=== PATIENT | male | born 1970 | race Caucasian/White ===

== ENCOUNTER 2016-08-15 00:42 | Emergency (ER) | payer MEDICAID ==
[2015-06-22 14:03] VITALS: BMI 29.2
[~2016-08-15 00:42] MED LIST: ATIVAN0.5 MG PO; ATIVAN1 MG; CELEXA20 MG PO; DILANTIN100 MG PO; HYDROCODON-ACE1 EAC7 PO; HYDROCODONE-APA1 TAB PO; LITHOBID 300 M300 MG PO; TORADOL10 MG PO; ULTRAM50 MG PO
[2016-08-15 02:11] LABS: BASOPHILS 0.4 % (0.0-2.0); EOSINOPHILS 4.7 % (0-7); HEMATOCRIT 41.8 % (42.0-54.0); HEMOGLOBIN 14.7 g/dL (13.5-17.5); IMMATURE GRANULOCYTES 0.2 % (0-5); LYMPHOCYTES 34.8 % (15-50); MCH 32.5 pg (26.0-34.0); MCHC 35.2 g/dL (31.0-37.0); MCV 92.5 fL (80.0-100.0); MEAN PLATELET VOLUME 9.9 fL (7.4-10.4); MONOCYTES 12.6 % (2-11); NEUTROPHILS 47.3 % (40-80); PLATELET COUNT 181 10x3/uL (130-400); RBC 4.52 10x6/uL (4.20-6.10); RDW 12.2 % (11.5-14.5); WBC 5.5 10x3/uL (4.8-10.8)
[2016-08-15 02:24] LABS: ALBUMIN 3.4 g/dL (3.4-5.0); ALKALINE PHOSPHATASE 82 U/L (46-116); ALT (SGPT) 66 U/L (10-68); BILIRUBIN - TOTAL 0.21 mg/dL (0.2-1.3); CALC OSMOLALITY 280 mosm/kg (275-300); CARBON DIOXIDE 26.8 mmol/L (21.0-32.0); CHLORIDE - SERUM 104 mmol/L (98-107); GLUCOSE 108 mg/dL (74-106); POTASSIUM - SERUM 4.4 mmol/L (3.5-5.1); PROTEIN - SERUM 6.8 g/dL (6.4-8.2); SODIUM 139 mmol/L (136-145); UREA NITROGEN 17 mg/dL (7-18); eGFR NON AFRICAN AMERICAN 86 mL/min (90-120)
[2016-08-15 02:34] LABS: CHOL - HDL RATIO 5.8 ratio (2.3-4.9); CHOLESTEROL, TOTAL 180 mg/dL (0-200); CKMB 1.2 U/L (0.0-3.6); CREATINE KINASE 71 UL (21-232); HDL CHOLESTEROL 31 mg/dL (32-96); LDL CHOLESTEROL 79 mg/dL (0-100); LDL-HDL RATIO 2.5 ratio (1.5-3.5); TRIGLYCERIDE 350 mg/dL (30-200)
[2016-08-15 02:35] LABS: TROPONIN-I < 0.017 ng/mL (0.000-0.060)
== END 2016-08-15 02:50 | disposition home or self-care (01) ==
LOC: D.ER 00:42
PROVIDERS: Family Medicine
DX: R07.89 Other chest pain (principal); E11.9 Type 2 diabetes mellitus without complications; R00.1 Bradycardia, unspecified; I44.0 Atrioventricular block, first degree

== ENCOUNTER 2016-10-14 13:57 | Emergency (ER) | payer MEDICAID ==
[2015-06-22 14:03] VITALS: BMI 29.2
[2016-10-14 15:49] LABS: BASOPHILS 0.2 % (0-2); EOSINOPHILS 1.5 % (0-7); HEMATOCRIT 43.8 % (42.0-54.0); HEMOGLOBIN 15.4 g/dL (13.5-17.5); IMMATURE GRANULOCYTES 0.2 % (0-5); MCH 32.2 pg (26.0-34.0); MCHC 35.2 g/dL (31.0-37.0); MCV 91.6 fL (80.0-100.0); MEAN PLATELET VOLUME 10.2 fL (7.4-10.4); MONOCYTES 9.5 % (2-11); NEUTROPHILS 71.6 % (40-80); RBC 4.78 10x6/uL (4.20-6.10); RDW 12.4 % (11.5-14.5); WBC 9.2 10x3/uL (4.8-10.8)
[2016-10-14 16:02] LABS: PLATELET COUNT 229 10x3/uL (130-400)
[2016-10-14 16:30] LABS: INR 1.03 (0.85-1.17); PROTIME 13.4 SECONDS (11.6-15.0)
== END 2016-10-14 18:23 | disposition home or self-care (01) ==
LOC: D.ER 13:57
PROVIDERS: Emergency Medicine; Nurse Practitioner Family
DX: S40.011A Contusion of right shoulder, initial encounter (principal); S20.229A Contusion of unspecified back wall of thorax, initial encounter; Y00.XXXA Assault by blunt object, initial encounter; S01.01XA Laceration without foreign body of scalp, initial encounter; S06.9X9A Unspecified intracranial injury with loss of consciousness of unspecified duration, initial encounter; T42.0X5A Adverse effect of hydantoin derivatives, initial encounter; E11.9 Type 2 diabetes mellitus without complications

== ENCOUNTER 2016-10-24 09:50 | Emergency (ER) | payer MEDICAID ==
[2015-06-22 14:03] VITALS: BMI 29.2
== END 2016-10-24 11:00 | disposition home or self-care (01) ==
LOC: D.ER 09:50
DX: S01.01XD Laceration without foreign body of scalp, subsequent encounter (principal); X58.XXXD Exposure to other specified factors, subsequent encounter; Y92.89 Other specified places as the place of occurrence of the external cause; Z48.02 Encounter for removal of sutures; M25.511 Pain in right shoulder

== ENCOUNTER 2016-11-24 23:55 | Emergency (ER) | payer MEDICAID ==
[2015-06-22 14:03] VITALS: BMI 29.2
[2016-11-25 00:58] LABS: BASOPHILS 0.3 % (0-2); EOSINOPHILS 4.3 % (0-7); HEMATOCRIT 41.1 % (42.0-54.0); HEMOGLOBIN 14.2 g/dL (13.5-17.5); IMMATURE GRANULOCYTES 0.2 % (0-5); LYMPHOCYTES 34.9 % (15-50); MCHC 34.5 g/dL (31.0-37.0); MCV 92.6 fL (80.0-100.0); MONOCYTES 13.8 % (2-11); NEUTROPHILS 46.5 % (40-80); PLATELET COUNT 228 10x3/uL (130-400); RBC 4.44 10x6/uL (4.20-6.10); RDW 12.2 % (11.5-14.5); WBC 6.1 10x3/uL (4.8-10.8)
[2016-11-25 01:15] LABS: ALBUMIN 3.1 g/dL (3.4-5.0); ALKALINE PHOSPHATASE 79 U/L (46-116); ALT (SGPT) 73 U/L (10-68); BILIRUBIN - TOTAL 0.42 mg/dL (0.2-1.3); CALC OSMOLALITY 281 mosm/kg (275-300); CALCIUM 8.5 mg/dL (8.5-10.1); CARBON DIOXIDE 24.7 mmol/L (21.0-32.0); CHLORIDE - SERUM 106 mmol/L (98-107); CREATININE - SERUM 0.9 mg/dL (0.6-1.3); GLUCOSE 101 mg/dL (74-106); PHENYTOIN (DILANTIN) 0.4 ug/mL (10.0-20.0); POTASSIUM - SERUM 4.3 mmol/L (3.5-5.1); PROTEIN - SERUM 6.7 g/dL (6.4-8.2); SODIUM 139 mmol/L (136-145); UREA NITROGEN 25 mg/dL (7-18); eGFR NON AFRICAN AMERICAN > 90 mL/min (90-120)
== END 2016-11-25 04:39 | disposition home or self-care (01) ==
LOC: D.ER 23:55
PROVIDERS: Emergency Medicine
DX: G40.909 Epilepsy, unspecified, not intractable, without status epilepticus (principal); F17.200 Nicotine dependence, unspecified, uncomplicated; I44.0 Atrioventricular block, first degree

== ENCOUNTER 2016-12-18 13:03 | Observation (INO) | payer MEDICAID ==
[~2016-12-18] VITALS: Ht 162.6 cm; Wt 87.3 kg
--- NOTE | ~2016-12-18 | HEMODYNAMI ---
PATIENT:ELIZABETH MCKEON MEDICAL RECORD: [id number] : 70 LOCATION:[facility] D.2111 ADMISSION DATE: 12/18/16 Generatedon:12/19/201611:20 Patient name: ELIZABETH MCKEON Patient #: [id number] SSN: D OB: 1970 Date of study: 12/19/2016 Page: Of Hemodynamic Procedure Report Patient Data Patient Demographics Procedure consent was obtained First Name: ELIZABETH Gender: Male Last Name: MIKE : 1970 Patient #: [id number] Age: 46 year(s) Race: Unknown Additional ID: [id number] Contact details [address]: [address] [place] [address] A State: [place] City: [place] Zip code: [address] Past Medical History Allergies Allergen Reaction Date Comments Reported Other allergy 12/19/2016 Codeine, Morphine, Tylenol, Sulfa Admission Admission Data Admission Date: 12/18/2016 Admission Time: 17:29 [facility] Lab Result Date: 12/19/2016 Lab Result Time: 0:00 Biochemistry Name Units Result Min Max BUN mg/dl 18 --(---*)-- 7 18 Creatinine mg/dl 1 --(--*-)-- 0.6 1.3 CBC Name Units Result Min Max Hemoglobin g/dl 14.1 --(*---)-- 13.5 17.5 Procedure Procedure Types Cath Procedure Diagnostic Procedure C [facility] w/Coronaries Miscellaneous Procedures Moderate Sedation up to 15 minutes Peripheral Cath Diagnostic Procedure 4-Vessel Procedure Description Procedure Date Procedure Date: 12/19/2016 Procedure Start Time: 11:04 Procedure End Time: 11:15 Procedure Staff Name Function Malik Diehl MD Performing Physician Tyesha Gaona RT Scrub Sabino Hendrix RN Nurse Ginger Champagne RT Monitor Procedure Data Cath Procedure Fluoroscopy Diagnostic fluoroscopy Total fluoroscopy Time: 2.5 time: 2.5 min min Diagnostic fluoroscopy Total fluoroscopy dose: 412 dose: 412 mGy mGy Contrast Material Contrast Material Type Amount (ml) Isovue 300 86 Entry Location Entry Primary Successful Side Size Upsize Upsize Entry Closure Succes sful Closure Location (Fr) 1 (Fr) 2 (Fr) Remarks Device Remarks Femoral Right 5 Fr Exoseal artery Estimated blood loss: 10 ml Diagnostic catheters Device Type Used For End Catheter Placement Cordis 5Fr JL 4.0 Procedure Catheter (MP) Cordis 5Fr 3DRC Catheter Procedure (MP) Cordis 5Fr Pigtail LV Angiography Catheter (MP) Procedure Complications No complications Procedure Medications Medication Administration Route Dosage Oxygen NC 2 l/min Lidocaine 2% added to field 20 Heparin Flush Bag added to field 2 bags (1000units/500ml NS) 0.9% NaCl I.V. 100 ml/hr Versed I.V. 1 mg Fentanyl I.V. 50 mcg Versed I.V. 1 mg Fentanyl I.V. 50 mcg Solumedrol I.V. 125 mg Hemodynamics Rest HGB: 14.1 (g/dl) Heart Rate: 73 (bpm) Pressure Samples Time Site Value (mmHg) Purpose Heart Use Rate(bpm) 11:11 LV 104/12,28 Snapshot 50 11:11 AO 94/61(77) Pullback 50 11:11 LV 100/14,31 Pullback 50 Gradients Valve Time Site 1 Site 2 Mean SEP/DFP Peak To Heart Use (mmHg) (sec/min) Peak Rate (mmHg) (bpm) Aortic 11:11 LV AO 6 11 6 50 100/14,31 94/61(77) Calculations Valve P-P Mean Valve Index Valve Source Name Gradient Area Flow (cm2) Aortic 6 6 6 6 Snapshots Pre Cath Intra NCS Post Cath Vital Signs Time Heart Resp SPO2 NIBP Rhythm Pain Sedation Rate (ipm) (%) (mmHg) Status Level (bpm) 10:55:09 54 20 99 105/64(81) NSR 0 (11) 10(A) , No pain 10:59:15 53 13 97 100/64(74) NSR 0 (11) 10(A) , No pain 11:03:21 48 10 96 107/60(82) NSR 0 (11) 10(A) , No pain 11:07:28 51 12 96 101/63(81) NSR 0 (11) 10(A) , No pain 11:11:32 48 10 97 99/68(76) NSR 0 (11) 10(A) , No pain 11:15:36 47 11 97 95/60(77) NSR 0 (11) 10(A) , No pain Medications Time Medication Route Dose Verified Delivered Reason Notes E ffectiveness by by 10:54:46 Oxygen NC 2 Malik Buffie used for l/min [facility]. Aba Hendrix account solutions analyst 10:54:55 Lidocaine 2% added 20ml Malik Malik for local to vial [facility] anesthetic field MD MACDONALD 10:55:01 Heparin Flush added 2 Malik Malik used for Bag to bags [facility] procedure (1000units/500ml field MD MACDONALD NS) 10:55:10 0.9% NaCl I.V. 100 Malik Buffie Per ml/hr [facility]. Aba Hendrix RN physician 10:58:42 Versed I.V. 1 mg Malik Hamiltonie for [facility] Aba Hendrix RN sedation 10:58:47 Fentanyl I.V. 50 Malik Joyie for mcg FazalCammy Hendrix RN sedation 11:03:17 Versed I.V. 1 mg Malik Hamiltonie for FazalCammy Hendrix RN sedation 11:03:20 Fentanyl I.V. 50 Malik Hamiltonie for mcg FazalCammy Hendrix RN sedation 11:14:51 Solumedrol I.V. 125 Malik Hamiltonie Per for mg [facility] Aba Hendrix RN physician pleuricharisse MACDONALD type chest pain Procedure Log Time Note 10:43:53 Sabino Hendrix RN sent for patient. Start room use. 10:43:54 Time tracking: Regular hours 10:43:59 Plan of Care:Hemodynamics will remain stable., Cardiac rhythm will remain stable., Comfort level will be maintained., Respiratory function will remain adequate., Patient/ family verbilizes understanding of procedure., Procedure tolerated without complication., Recovers from procedure without complications.. 10:44:58 Patient received from PCU to CCL 2 Alert and oriented. Tansferred to table in Supine position. 10:44:59 Warm blankets applied, and freedom hugger turned on for patient comfort. 10:45:00 Correct patient and procedure confirmed by team. 10:45:01 Signed procedure consent form obtained from patient. 10:45:01 ECG and BP/O2 sat monitors applied to patient. 10:45:02 Full Disclosure recording started 10:54:07 Vital chart was started 10:54:15 Baseline sample Acquired. 10:54:21 Rhythm: sinus rhythm 10:54:45 H&P Date Dictated: 12/18/2016 Within 30 days and on chart.. 10:54:46 Oxygen 2 l/min NC was administered by Sabino Hendrix RN; used for procedure; 10:54:47 Pre-procedure instructions explained to patient. 10:54:52 Family unavailable. 10:54:55 Lidocaine 2% 20ml vial added to field was administered by Malik Diehl MD; for local anesthetic; 10:54:56 Patient NPO since Midnight. 10:55:01 Heparin Flush Bag (1000units/500ml NS) 2 bags added to field was administered by Malik Diehl MD; used for procedure; 10:55:10 0.9% NaCl 100 ml/hr I.V. was administered by Sabino Hendrix RN; Per physician; 10:55:32 Patient allergic to Other allergyCodeine, Morphine, Tylenol, Sulfa 10:55:38 Is the patient allergic to Iodine/contrast media? No. 10:55:51 Is patient on blood thinner?No 10:56:01 Patient diabetic? Yes. 10:56:04 If diabetic: On Metformin? No 10:56:08 Snore? Yes 10:56:10 Sleep apnea? No 10:56:27 Airway obstruction? No Asthma 10:56:32 Dentures? No ? 10:56:41 Patient pain scale 10/10 ?. 10:57:00 IV patent on arrival in left forearm with 0.9% NaCl at [facility]. 10:57:55 Lab Result : BUN 18 mg/dl 10:57:55 Lab Result : Creatinine 1 mg/dl 10:57:55 Lab Result : Hemoglobin 14.1 g/dl 10:57:59 Lab results completed and on chart. 10:58:03 Right groin area was prepped with chlora-prep and draped in sterile fashion 10:58:05 Alarms reviewed by R. N. 10:58:05 Sharps counted by scrub and verified by RCammyN. 10:58:06 Physician paged 10:58:07 Physician arrived 10:58:08 --------ALL STOP TIME OUT------ 10:58:09 Final Timeout: patient, procedure, and site verified with staff and physician. All members of the team are in agreement. 10:58:11 Right groin site verified by team. 10:58:15 Sedation plan: IV Moderate Sedation Versed, Fentanyl 10:58:42 Versed 1 mg I.V. was administered by Sabino Hnedrix RN; for sedation; 10:58:47 Fentanyl 50 mcg I.V. was administered by Sabino Hendrix RN; for sedation; 11:03:17 Versed 1 mg I.V. was administered by Sabino Hendrix RN; for sedation; 11:03:20 Fentanyl 50 mcg I.V. was administered by Sabino Hendrix RN; for sedation; 11:03:34 Zero performed for pressure channel P1 11:03:52 Use device set Femoral Dx 11:03:54 Acist Syringe opened to sterile field. 11:03:54 Bag Decanter opened to sterile field. 11:03:55 Medline Cath Pack opened to sterile field. 11:03:55 Terumo 5Fr [place] Sheath opened to sterile field. 11:03:55 St Taz 260cm J .035 wire opened to sterile field. 11:03:56 Acist Hand Control opened to sterile field. 11:03:57 Acist Manifold opened to sterile field. 11:03:57 Diagnostic Infinity 5Fr Multipack catheter opened to sterile field. 11:03:58 Tegaderm 4 x 4 opened to sterile field. 11:04:00 Procedure started. 11:04:10 Local anesthetic to right femoral artery with Lidocaine 2% by Malik Diehl MD.INITIAL ACCESS ONLY 11:04:21 A 5 Fr sheath was inserted into the Right Femoral artery 11:05:22 ? wire advanced. 11:05:35 A Cordis 5Fr JL 4.0 Catheter (MP) was advanced over the wire and used for Procedure. 11:06:18 LCA angiography performed. 11:06:34 Catheter removed. 11:07:13 A Cordis 5Fr 3DRC Catheter (MP) was advanced over the wire and used for Procedure. 11:07:52 RCA angiography performed. 11:08:45 Right carotid angiography performed. 11:10:10 Left carotid angiography performed. 11:11:06 Catheter removed. 11:11:15 A Cordis 5Fr Pigtail Catheter (MP) was advanced over the wire and used for LV Angiography. 11:11:36 LV gram done using CLEMENS 11:11:58 EF : 55 % 11:12:04 Catheter removed. 11:12:12 Cordis 5Fr Exoseal opened to sterile field. 11:12:28 Sheath removed intact; hemostasis achieved with Exoseal to the Right Femoral artery. 11:12:37 Procedure ended.(Physican Out) 11:12:47 Fluoroscopy time 02.50 minutes. 11:12:54 Fluoroscopy dose: 412 mGy 11:12:54 Flurop Dose total: 412 11:13:18 Contrast amount:Isovue 300 86ml. 11:13:20 Sharps counted by scrub and verified by R.N. 11:13:42 Insertion/operative site no bleeding no hematoma. 11:13:44 Post Procedure Pulses reassessed and unchanged 11:13:48 Post-procedure physical assessment completed. ASA score P 2 - A patient with mild systemic disease as per Malik Diehl MD. 11:13:53 Post procedure rhythm: unchanged. 11:13:55 Estimated blood loss: 10 ml 11:14:05 Post procedure instruction explained to patient.Patient verbalizes understanding. 11:14:24 Procedure type changed to Cath procedure, Diagnostic procedure, LHC, LHC w/Coronaries, Miscellaneous Procedures, Moderate Sedation up to 15 minutes, Peripheral Cath Diagnostic Procedure, 4-Vessel 11:14:37 Procedure and supply charges have been captured, reviewed, submitted and are correct. 11:14:51 Solumedrol 125 mg I.V. was administered by Sabino Hendrix RN; Per physician; for pleuritic type chest pain 11:14:56 Procedure Complication : No complications 11:15:01 Vital chart was stopped 11:15:06 See physician's report for complete and final results. 11:15:09 Report given to Med II. 11:15:13 Patient transfered to [facility] II with Bed. 11:15:15 Procedure ended. 11:15:15 Full Disclosure recording stopped 11:15:19 End room use (Document Last) Device Usage Item Name Manufacture Quantity Catalog Hospital Part Current Minimal Lo t# / Number Charge Number Stock Stock Serial# Code Acist Acist 1 95187 234822 710770 903943 20 Syringe Medical [employer] Bag Microtek 1 2002S 269325 53658 664721 5 Dec[employer]un[employer] Inc[employer] Medline Cardinal 1 [id number] 797956 61172 650029 5 Cath Pack Health Terumo 5Fr Terumo 1 DAT537 234572 777442 271972 [address] Taz 1 909888 227335 777178 900147 30 260cm J .035 wire Acist Hand Acist 1 28938 197576 819674 940858 5 Control Medical Systems Inc Acist Acist 1 71017 684788 761866 970249 5 Manifold Medical Systems Inc Diagnostic Cardinal 1 [id number] 832039 78143 331505 30 Infinity Health 5Fr Multipack catheter Tegaderm 4 3M 1 1626W 511169 932507 534996 5 x 4 Cordis 5Fr Cardinal 1 345178 5 JL 4.0 Health Catheter (MP) Cordis 5Fr Cardinal 1 478844 5 3DRC Health Catheter (MP) Cordis 5Fr Cardinal 1 085498 5 Pigtail Health Catheter (MP) Cordis 5Fr Cardinal 1 EX500 982731 565500 314229 10 [facility] Enablon Signature Audit [place] Stage Time Signature Unsigned Intra-Procedure 12/19/2016 Ginger Champagne 11:20:04 AM RT(R) Signatures Monitor : Ginger Champagne Signature : RT Date : Time : [place] [address] [place] [address]
[2016-12-18 13:49] LABS: BASOPHILS 0.3 % (0-2); EOSINOPHILS 4.4 % (0-7); HEMATOCRIT 40.1 % (42.0-54.0); HEMOGLOBIN 14.1 g/dL (13.5-17.5); IMMATURE GRANULOCYTES 0.2 % (0-5); LYMPHOCYTES 35.4 % (15-50); MCH 32.1 pg (26.0-34.0); MCHC 35.2 g/dL (31.0-37.0); MCV 91.3 fL (80.0-100.0); MEAN PLATELET VOLUME 10.1 fL (7.4-10.4); MONOCYTES 11.3 % (2-11); NEUTROPHILS 48.4 % (40-80); PLATELET COUNT 213 10x3/uL (130-400); RBC 4.39 10x6/uL (4.20-6.10); RDW 12.1 % (11.5-14.5); WBC 6.1 10x3/uL (4.8-10.8)
[2016-12-18 14:15] LABS: ALBUMIN 3.5 g/dL (3.4-5.0); ALKALINE PHOSPHATASE 82 U/L (46-116); ALT (SGPT) 56 U/L (10-68); BILIRUBIN - TOTAL 0.55 mg/dL (0.2-1.3); CALC OSMOLALITY 278 mosm/kg (275-300); CALCIUM 8.6 mg/dL (8.5-10.1); CARBON DIOXIDE 26.8 mmol/L (21.0-32.0); CHLORIDE - SERUM 106 mmol/L (98-107); GLUCOSE 112 mg/dL (74-106); POTASSIUM - SERUM 3.7 mmol/L (3.5-5.1); SODIUM 138 mmol/L (136-145); UREA NITROGEN 18 mg/dL (7-18); eGFR NON AFRICAN AMERICAN 85 mL/min (90-120)
[2016-12-18 14:26] LABS: CHOL - HDL RATIO 3.5 ratio (2.3-4.9); CHOLESTEROL, TOTAL 175 mg/dL (0-200); CKMB 1.4 U/L (0.0-3.6); CREATINE KINASE 122 UL (21-232); HDL CHOLESTEROL 50 mg/dL (32-96); LDL CHOLESTEROL 110 mg/dL (0-100); LDL-HDL RATIO 2.2 ratio (1.5-3.5); TRIGLYCERIDE 79 mg/dL (30-200)
[2016-12-18 14:27] LABS: TROPONIN-I < 0.017 ng/mL (0.000-0.060)
[2016-12-18 15:32] LABS: APPEARANCE HAZY (CLEAR); COLOR DK YELLOW (YELLOW); SPECIFIC GRAVITY 1.025 (1.005-1.020)
[2016-12-18 15:35] LABS: BACTERIA FEW /hpf (NONE SEEN); BILIRUBIN NEGATIVE (NEGATIVE); EPITHELIAL CELLS OCC /hpf (0-5); GLUCOSE NEGATIVE (NEGATIVE); KETONE NEGATIVE (NEGATIVE); LEUKOCYTE ESTERASE TRACE (NEGATIVE); MUCUS >1+ /lpf (NONE SEEN); NITRITE NEGATIVE (NEGATIVE); PROTEIN NEGATIVE (NEGATIVE); RED CELLS - URINE OCC /hpf (0-5); UDS - AMPHET POSITIVE QUAL (NEGATIVE); UDS - BARB NEGATIVE QUAL (NEGATIVE); UDS - BENZO NEGATIVE QUAL (NEGATIVE); UDS - COCAINE NEGATIVE QUAL (NEGATIVE); UDS - METH NEGATIVE QUAL (NEGATIVE); UDS - OPIATE NEGATIVE QUAL (NEGATIVE); UDS - PCP NEGATIVE QUAL (NEGATIVE); UDS - THC POSITIVE QUAL (NEGATIVE); UROBILINOGEN NORMAL (NORMAL)
[2016-12-18] MEDS ORDERED: ZOLOFT100 MG PO (18:39)
[2016-12-18] MEDS ORDERED: PROAIR HFA8.5 GM INH (18:40)
--- NOTE | 2016-12-18 18:45 | NUR ---
RECIEVED FROM ER. PT IS CONFUSED AND DOEST REMEMBER WHEN OR WHAT HE TAKES.V/S STABLE. TELEMERTY SHOWS BRADYCARDIA AT 57. IV OF NS INFUSING INTO HIS LEFT AC AT 150 HR. CALL LIGHT IN REACH WITH SR UP. WILL MONITOR
[2016-12-18 19:00] VITALS: BP 103/78
--- NOTE | 2016-12-18 20:00 | NUR ---
PT AWAKE, FOCUSED ON GETTING SOMEONE TO CALL HIS TO LET HER KNOW HE IS IN THE HOSPITAL. STAFF X 2 HAS CALLED ALL NUMBERS THAT HE HAS PROVIDED AND THERE ARE NO ANSWERS ANYWHER. PT FINALLY SETTLED DOWN AND STOPPED TRYING TO REACH HIS FAMILY. IV TO LEFT A/C WITH NS @ 150ML/HR. SEIZURE PRECAUTIONS. SEE SHIFT ASSESSMENT. CPOC.
[2016-12-18 22:41] VITALS: BP 103/70; BMI 29.2
[2016-12-19] VITALS: BP 92/56
--- NOTE | 2016-12-19 00:28 | NUR ---
PT REQUESTING SNACK. SAYING HE HAS NOT HAD ANYTHING TO EAT. PROVIDED WITH PUDDING AND MARY ANNE CRACKERS.
--- NOTE | 2016-12-19 03:30 | NUR ---
AWAKE AND REQUESTING DRINK. JUICE PROVIDED. IVF INFUSING. LAB IN ROOM DRAWING CARDIAC ENZYMES. CPOC.
[2016-12-19 04:00] VITALS: BP 92/45
[2016-12-19 09:16] VITALS: BP 101/53
--- NOTE | 2016-12-19 09:23 | NUR ---
RATIONALE FOR SCD'S EXPLAINED. SCD'S ON BILATERAL LE
[2016-12-19 09:44] LABS: BASOPHILS 0.3 % (0-2); EOSINOPHILS 5.1 % (0-7); HEMATOCRIT 39.8 % (42.0-54.0); HEMOGLOBIN 13.5 g/dL (13.5-17.5); IMMATURE GRANULOCYTES 0.1 % (0-5); LYMPHOCYTES 31.3 % (15-50); MCH 31.6 pg (26.0-34.0); MCHC 33.9 g/dL (31.0-37.0); MCV 93.2 fL (80.0-100.0); MEAN PLATELET VOLUME 11.2 fL (7.4-10.4); MONOCYTES 12.1 % (2-11); NEUTROPHILS 51.1 % (40-80); PLATELET COUNT 204 10x3/uL (130-400); RBC 4.27 10x6/uL (4.20-6.10); RDW 12.4 % (11.5-14.5); WBC 6.9 10x3/uL (4.8-10.8)
[2016-12-19 09:46] LABS: CALC OSMOLALITY 278 mosm/kg (275-300); CALCIUM 8.4 mg/dL (8.5-10.1); CARBON DIOXIDE 24.1 mmol/L (21.0-32.0); CHLORIDE - SERUM 108 mmol/L (98-107); GLUCOSE 110 mg/dL (74-106); POTASSIUM - SERUM 3.9 mmol/L (3.5-5.1); SODIUM 138 mmol/L (136-145); UREA NITROGEN 18 mg/dL (7-18); eGFR NON AFRICAN AMERICAN 85 mL/min (90-120)
--- NOTE | 2016-12-19 10:01 | NUR ---
ASSESSMENT COMPLETED. TELEMERTY SHOWS SB.O2 AT 2 L/M PER NC. LEFT AC IV WITH NS AT 150. CONFUSED AT TIMES WILL MONITOR
--- NOTE | 2016-12-19 10:56 | NUR ---
TO FOOD ADVISER PER BED.
[2016-12-19] MEDS ORDERED: MEDROL DOSE PACK4 MG PO (11:41)
--- NOTE | 2016-12-19 11:49 | NUR ---
BACK FROM EYE DROPPER ASSEMBLER. V/S STABLE. RIGHT GROIN SOFT WITH DRSG DRY AND INTACT. PPP. SEDATED BUT AWAKES TO LEYLA ARRIAGA, WILL MONITOR
[2016-12-19 11:56] VITALS: BP 91/50
[2016-12-19 13:39] VITALS: Ht 162.6 cm; Wt 87.3 kg
--- NOTE | 2016-12-19 14:08 | NUR ---
PT DISCHARGED. INSTRUCTIONS GIVEN TO PT. IV DCD WITH TIP INTACT. RIGHT GROIN SOFT WITH DRSG DRY AND INTACT. TO PRIVATE CAR PER WHEELCHAIR
--- NOTE | 2016-12-22 13:52 | OP ---
PATIENT NAME: ELIZABETH MCKEON MEDICAL RECORD: [id number] :70 LOCATION:D.M2 D.2111 ADMISSION DATE:12/18/16 SURGEON: MIKIE BRANCH MD DATE OF OPERATION: 12/19/2016 PROCEDURE: Left heart catheterization, selective coronary angiography, four-vessel arteriography, right femoral approach. CATHETERS: A 5-Ukrainian sheath, 5/4 left and right Giovani, 5/4 pig. The procedure was well tolerated. The patient returned to bernstein, sheath removed. ExoSeal device was placed. FINDINGS: Left ventriculography in 30-degree CLEMENS view: Normal wall motion, normal systolic function. CORONARY ANATOMY: LEFT MAIN: Left main is free of disease. LAD: Free of disease in the diagonal system. CIRCUMFLEX: Free of disease in the marginal system. RIGHT CORONARY ARTERY: Dominant artery, gives rise to PDA, free of disease. FOUR-VESSEL ARTERIOGRAPHY: Right common carotid was selectively cannulated and this showed smooth-walled vessel without significant disease. Right external carotid some mild wall disease, but no significant stenosis. Right internal carotid is a smooth-walled vessel, free of disease. The left common carotid was selectively engaged, which showed mild wall disease with no significant stenosis. Left external carotid, smooth-walled vessel, free of disease. Left internal carotid smooth-walled vessel, free of disease. At the end of procedure, sheath closed with ExoSeal device. The patient was returned to the bernstein in stable condition. TRANSINT:[id number] Voice Confirmation ID: [id number] DOCUMENT ID: [id number] MIKIE BRANCH MD at 1352 CC: [id number] DICTATION DATE: 12/19/16 1117 PARTS SALESPERSON: 12/19/16 1559 DIS IN 12/19/16 [place] [id number] [place] [id number]
--- NOTE | 2016-12-22 13:52 | HP ---
PATIENT: ELIZABETH MCKEON MEDICAL RECORD: [id number] ACCOUNT: [id number] LOCATION:[facility].2110 : 70 ADMISSION DATE: 12/18/16 HISTORY AND PHYSICAL EXAMINATION HISTORY OF PRESENT ILLNESS: A 46-year-old gentleman with no known history of coronary artery disease, has been having intermittent chest tightness and pressure, presented to the Emergency Room, found to be markedly bradycardic with rates in the 31. He is on Dilantin, which does have sodium blocking effect, responded to atropine. He continued to have chest pain intermittently, along with left sided marked weakness intermittently, so this comes on suddenly. He was admitted for further evaluation. PAST MEDICAL HISTORY: Includes: 1. History of seizure disorder. 2. Previous history of hypertension, not on medications currently. 3. Obstructive pulmonary disease. 4. Long-term smoking with probable COPD on exam. ALLERGIES: MORPHINE, CODEINE AND ACETAMINOPHEN. MEDICATIONS: Ativan 0.5 b.i.d., Dilantin 100 b.i.d. and Zoloft 100 daily. SOCIAL HISTORY: , lives in [place]. Nonsmoker. Marijuana use, occasional amphetamine use. REVIEW OF SYSTEMS: The patient reports easy bruising but reports no swollen glands. The patient reports no fever, no night sweats, no significant weight gain, no significant weight loss. No significant exercise tolerance. The patient reports no dry eyes, no irritation, no vision change. Patient reports no difficulty hearing and no ear pain. Patient reports no frequent nose bleeds or nose and sinus problems. Patient reports on arm pain on exertion. No shortness of breath while lying down. No history of heart murmur. Patient reports no cough, no wheezing or coughing up blood. Patient reports no abdominal pain, no vomiting. Normal appetite. No diarrhea and not vomiting blood. No nausea and no constipation. Patient reports no incontinence. No difficulty urinating. No hematuria. No increased frequency. Patient reports no muscle aches. No weakness, no arthralgias, no back pain. No swelling of the extremities. Patient reports no abnormal mole, no jaundice, no rashes. Reports no loss of consciousness. No weakness and no numbness. No seizures, dizziness, or headaches. The patient reports no depression, no sleep disturbance, feeling safe in a relationship and no alcohol abuse. Patient reports on fatigue. Reports no runny nose or sinus pressure. No itching, no hives, and no frequent sneezing. PHYSICAL EXAMINATION: GENERAL: Pleasant gentleman, cooperative, in no acute distress. VITAL SIGNS: Blood pressure 101/53 and pulse is 48. HEENT: Normocephalic and atraumatic. NECK: No JVD or bruit. HEART: Regular, II/ systolic ejection murmur, questionable S4 gallop. LUNGS: Good air excursion. ABDOMEN: Soft, nontender. EXTREMITIES: Pulses are 2+. Has no edema. HISTORY AND PHYSICAL [id number] ELIZABETH MCKEON DIAGNOSTIC DATA: EKG shows sinus chanel, no ST-T changes. IMPRESSION: Acute coronary syndrome with bradyarrhythmias, certainly right coronary could be a concern here given his testing and symptomology. PLAN: For angiography, 4-vessel arteriography in the same setting. TRANSINT:[id number] Voice Confirmation ID: [id number] DOCUMENT ID: [id number] MIKIE BRANCH MD at 1352 CC: [id number] DICTATION DATE: 12/19/16928 AGRICULTURAL ECONOMICS PROFESSOR: 12/19/16 1049 DIS IN 12/19/16 [facility] [address] [place] [address]
== END 2016-12-19 14:29 | disposition home or self-care (01) ==
LOC: D.ER 13:03 → D.M2 17:29 → OBSVTIME 17:29 → D.M2 12-19 14:29
PROVIDERS: Emergency Medicine; Nurse Practitioner Acute Care; ADMIT Internal Medicine Interventional Cardiology
DX: R07.9 Chest pain, unspecified (principal); R00.1 Bradycardia, unspecified; R53.1 Weakness; J44.9 Chronic obstructive pulmonary disease, unspecified; I10 Essential (primary) hypertension; Z72.0 Tobacco use

== ENCOUNTER 2017-01-05 20:43 | Emergency (ER) | payer MEDICAID ==
[2016-12-19 13:39] VITALS: BMI 33.0
[~2017-01-05 20:43] MED LIST changes: +MEDROL DOSE PACK4 MG PO; +PROAIR HFA8.5 GM INH; +ZOLOFT100 MG PO
[2017-01-05 22:08] LABS: APPEARANCE HAZY (CLEAR); BILIRUBIN NEGATIVE (NEGATIVE); COLOR YELLOW (YELLOW); GLUCOSE NEGATIVE (NEGATIVE); KETONE NEGATIVE (NEGATIVE); LEUKOCYTE ESTERASE TRACE (NEGATIVE); NITRITE NEGATIVE (NEGATIVE); PROTEIN NEGATIVE (NEGATIVE); SPECIFIC GRAVITY 1.015 (1.005-1.020); UROBILINOGEN NORMAL (NORMAL)
[2017-01-05 22:09] LABS: BACTERIA FEW /hpf (NONE SEEN); WHITE CELLS - URINE 0-5 /hpf (0-5)
[2017-01-05 22:14] LABS: UDS - AMPHET POSITIVE QUAL (NEGATIVE); UDS - BARB NEGATIVE QUAL (NEGATIVE); UDS - BENZO NEGATIVE QUAL (NEGATIVE); UDS - COCAINE NEGATIVE QUAL (NEGATIVE); UDS - METH NEGATIVE QUAL (NEGATIVE); UDS - OPIATE NEGATIVE QUAL (NEGATIVE); UDS - PCP NEGATIVE QUAL (NEGATIVE); UDS - THC POSITIVE QUAL (NEGATIVE)
[2017-01-05 22:19] LABS: BASOPHILS 0.2 % (0-2); EOSINOPHILS 2.9 % (0-7); HEMATOCRIT 40.2 % (42.0-54.0); HEMOGLOBIN 14.3 g/dL (13.5-17.5); IMMATURE GRANULOCYTES 0.1 % (0-5); LYMPHOCYTES 18.3 % (15-50); MCHC 35.6 g/dL (31.0-37.0); MCV 89.9 fL (80.0-100.0); MEAN PLATELET VOLUME 9.8 fL (7.4-10.4); MONOCYTES 9.5 % (2-11); PLATELET COUNT 235 10x3/uL (130-400); RBC 4.47 10x6/uL (4.20-6.10); RDW 12.3 % (11.5-14.5); WBC 8.6 10x3/uL (4.8-10.8)
[2017-01-05 22:37] LABS: ALBUMIN 3.5 g/dL (3.4-5.0); ALKALINE PHOSPHATASE 72 U/L (46-116); ALT (SGPT) 49 U/L (10-68); BILIRUBIN - TOTAL 0.46 mg/dL (0.2-1.3); CALC OSMOLALITY 283 mosm/kg (275-300); CALCIUM 8.7 mg/dL (8.5-10.1); CARBON DIOXIDE 24.7 mmol/L (21.0-32.0); CHLORIDE - SERUM 108 mmol/L (98-107); CREATININE - SERUM 1.1 mg/dL (0.6-1.3); GLUCOSE 97 mg/dL (74-106); SODIUM 142 mmol/L (136-145); UREA NITROGEN 14 mg/dL (7-18); eGFR NON AFRICAN AMERICAN 76 mL/min (90-120)
[2017-01-05 23:07] LABS: CHOL - HDL RATIO 3.6 ratio (2.3-4.9); CHOLESTEROL, TOTAL 153 mg/dL (0-200); CKMB 2.4 U/L (0.0-3.6); CREATINE KINASE 143 UL (21-232); HDL CHOLESTEROL 42 mg/dL (32-96); LDL CHOLESTEROL 93 mg/dL (0-100); LDL-HDL RATIO 2.2 ratio (1.5-3.5); TRIGLYCERIDE 94 mg/dL (30-200)
[2017-01-05 23:10] LABS: TROPONIN-I < 0.017 ng/mL (0.000-0.060)
== END 2017-01-05 23:50 | disposition home or self-care (01) ==
LOC: D.ER 20:43
PROVIDERS: Emergency Medicine; Physician Assistant Medical
DX: R07.89 Other chest pain (principal); I48.92 Unspecified atrial flutter; I44.30 Unspecified atrioventricular block; G40.909 Epilepsy, unspecified, not intractable, without status epilepticus

== ENCOUNTER 2017-01-08 09:54 | Emergency (ER) | payer MEDICAID ==
[2016-12-19 13:39] VITALS: BMI 33.0
[2017-01-08 10:47] LABS: BASOPHILS 0.2 % (0-2); EOSINOPHILS 3.2 % (0-7); HEMATOCRIT 41.6 % (42.0-54.0); IMMATURE GRANULOCYTES 0.2 % (0-5); LYMPHOCYTES 33.7 % (15-50); MCH 32.2 pg (26.0-34.0); MCHC 36.1 g/dL (31.0-37.0); MCV 89.3 fL (80.0-100.0); MEAN PLATELET VOLUME 9.7 fL (7.4-10.4); MONOCYTES 11.2 % (2-11); NEUTROPHILS 51.5 % (40-80); PLATELET COUNT 239 10x3/uL (130-400); RBC 4.66 10x6/uL (4.20-6.10); RDW 12.4 % (11.5-14.5); WBC 5.6 10x3/uL (4.8-10.8)
[2017-01-08 11:08] LABS: HCG SERUM NEGATIVE
[2017-01-08 11:12] LABS: ALBUMIN 3.8 g/dL (3.4-5.0); ALKALINE PHOSPHATASE 97 U/L (46-116); ALT (SGPT) 104 U/L (10-68); CALC OSMOLALITY 279 mosm/kg (275-300); CALCIUM 9.8 mg/dL (8.5-10.1); CARBON DIOXIDE 25.4 mmol/L (21.0-32.0); CHLORIDE - SERUM 105 mmol/L (98-107); CREATININE - SERUM 1.1 mg/dL (0.6-1.3); GLUCOSE 77 mg/dL (74-106); POTASSIUM - SERUM 4.1 mmol/L (3.5-5.1); PROTEIN - SERUM 7.3 g/dL (6.4-8.2); SODIUM 140 mmol/L (136-145); UREA NITROGEN 17 mg/dL (7-18); eGFR NON AFRICAN AMERICAN 76 mL/min (90-120)
[2017-01-08 12:36] LABS: APPEARANCE CLOUDY (CLEAR); BILIRUBIN NEGATIVE (NEGATIVE); COLOR DK YELLOW (YELLOW); GLUCOSE NEGATIVE (NEGATIVE); KETONE MODERATE mg/dL (NEGATIVE); LEUKOCYTE ESTERASE TRACE (NEGATIVE); NITRITE NEGATIVE (NEGATIVE); PROTEIN NEGATIVE (NEGATIVE); SPECIFIC GRAVITY 1.005 (1.005-1.020)
[2017-01-08 12:37] LABS: AMORPHOUS SEDIMENT <1+ /lpf (NONE SEEN); BACTERIA FEW /hpf (NONE SEEN); CALCIUM OXALATE CRYSTALS 0-5 /hpf (NONE SEEN); EPITHELIAL CELLS 0-5 /hpf (0-5); MUCUS >1+ /lpf (NONE SEEN); RED CELLS - URINE >50 /hpf (0-5); WHITE CELLS - URINE 0-5 /hpf (0-5)
== END 2017-01-08 14:27 | disposition home or self-care (01) ==
LOC: D.ER 09:54
PROVIDERS: Emergency Medicine
DX: N20.1 Calculus of ureter (principal); F17.200 Nicotine dependence, unspecified, uncomplicated

== ENCOUNTER 2017-01-11 11:23 | Emergency (ER) | payer MEDICAID ==
[2016-12-19 13:39] VITALS: BMI 33.0
[2017-01-11 11:45] LABS: BASOPHILS 0.3 % (0-2); HEMATOCRIT 44.4 % (42.0-54.0); HEMOGLOBIN 15.6 g/dL (13.5-17.5); IMMATURE GRANULOCYTES 0.3 % (0-5); LYMPHOCYTES 31.6 % (15-50); MCH 32.2 pg (26.0-34.0); MCHC 35.1 g/dL (31.0-37.0); MCV 91.5 fL (80.0-100.0); MEAN PLATELET VOLUME 9.9 fL (7.4-10.4); MONOCYTES 11.1 % (2-11); NEUTROPHILS 52.7 % (40-80); PLATELET COUNT 236 10x3/uL (130-400); RBC 4.85 10x6/uL (4.20-6.10); RDW 12.1 % (11.5-14.5)
[2017-01-11 11:59] LABS: ALBUMIN 3.5 g/dL (3.4-5.0); ALKALINE PHOSPHATASE 91 U/L (46-116); ALT (SGPT) 71 U/L (10-68); BILIRUBIN - TOTAL 0.29 mg/dL (0.2-1.3); CALC OSMOLALITY 278 mosm/kg (275-300); CALCIUM 8.9 mg/dL (8.5-10.1); CARBON DIOXIDE 25.5 mmol/L (21.0-32.0); CHLORIDE - SERUM 106 mmol/L (98-107); CREATININE - SERUM 0.8 mg/dL (0.6-1.3); GLUCOSE 104 mg/dL (74-106); POTASSIUM - SERUM 4.2 mmol/L (3.5-5.1); PROTEIN - SERUM 7.3 g/dL (6.4-8.2); SODIUM 139 mmol/L (136-145); UREA NITROGEN 16 mg/dL (7-18); eGFR NON AFRICAN AMERICAN > 90 mL/min (90-120)
[2017-01-11 13:11] LABS: APPEARANCE CLEAR (CLEAR); BILIRUBIN NEGATIVE (NEGATIVE); COLOR YELLOW (YELLOW); GLUCOSE NEGATIVE (NEGATIVE); KETONE NEGATIVE (NEGATIVE); LEUKOCYTE ESTERASE NEGATIVE (NEGATIVE); NITRITE NEGATIVE (NEGATIVE); PROTEIN NEGATIVE (NEGATIVE); UROBILINOGEN NORMAL (NORMAL)
[2017-01-11 13:17] LABS: BACTERIA FEW /hpf (NONE SEEN); EPITHELIAL CELLS RARE /hpf (0-5); RED CELLS - URINE 0-5 /hpf (0-5); WHITE CELLS - URINE RARE /hpf (0-5)
== END 2017-01-11 14:36 | disposition home or self-care (01) ==
LOC: D.ER 11:23
PROVIDERS: Emergency Medicine
DX: R10.31 Right lower quadrant pain (principal); N20.1 Calculus of ureter; R07.81 Pleurodynia; R31.9 Hematuria, unspecified; F17.200 Nicotine dependence, unspecified, uncomplicated; G40.909 Epilepsy, unspecified, not intractable, without status epilepticus

== ENCOUNTER 2017-01-16 15:54 | Emergency (ER) | payer MEDICAID ==
[2016-12-19 13:39] VITALS: BMI 33.0
[2017-01-16 16:35] LABS: BASOPHILS 0.2 % (0-2); EOSINOPHILS 4.3 % (0-7); HEMOGLOBIN 13.6 g/dL (13.5-17.5); IMMATURE GRANULOCYTES 0.2 % (0-5); LYMPHOCYTES 29.2 % (15-50); MCH 31.8 pg (26.0-34.0); MCHC 34.9 g/dL (31.0-37.0); MCV 91.1 fL (80.0-100.0); MONOCYTES 12.3 % (2-11); NEUTROPHILS 53.8 % (40-80); PLATELET COUNT 206 10x3/uL (130-400); RBC 4.28 10x6/uL (4.20-6.10); RDW 12.2 % (11.5-14.5); WBC 6.1 10x3/uL (4.8-10.8)
[2017-01-16 16:49] LABS: ALBUMIN 3.4 g/dL (3.4-5.0); ALKALINE PHOSPHATASE 79 U/L (46-116); ALT (SGPT) 51 U/L (10-68); BILIRUBIN - TOTAL 0.29 mg/dL (0.2-1.3); CALC OSMOLALITY 281 mosm/kg (275-300); CALCIUM 9.3 mg/dL (8.5-10.1); CARBON DIOXIDE 30.1 mmol/L (21.0-32.0); CHLORIDE - SERUM 106 mmol/L (98-107); GLUCOSE 97 mg/dL (74-106); PROTEIN - SERUM 6.7 g/dL (6.4-8.2); SODIUM 140 mmol/L (136-145); UREA NITROGEN 21 mg/dL (7-18); eGFR NON AFRICAN AMERICAN 85 mL/min (90-120)
[2017-01-16 17:00] LABS: CKMB 1.1 U/L (0.0-3.6); CREATINE KINASE 85 UL (21-232)
[2017-01-16 17:02] LABS: TROPONIN-I < 0.017 ng/mL (0.000-0.060)
[2017-01-16 17:10] LABS: AMYLASE - SERUM 38 U/L (25-115); LIPASE 137 U/L (73-393)
[2017-01-16 17:42] LABS: APPEARANCE CLEAR (CLEAR); BILIRUBIN NEGATIVE (NEGATIVE); COLOR YELLOW (YELLOW); GLUCOSE NEGATIVE (NEGATIVE); KETONE NEGATIVE (NEGATIVE); LEUKOCYTE ESTERASE NEGATIVE (NEGATIVE); NITRITE NEGATIVE (NEGATIVE); PROTEIN NEGATIVE (NEGATIVE); UROBILINOGEN NORMAL (NORMAL)
== END 2017-01-16 19:47 | disposition home or self-care (01) ==
LOC: D.ER 15:54
PROVIDERS: Family Medicine
DX: R07.89 Other chest pain (principal); F41.9 Anxiety disorder, unspecified; N13.9 Obstructive and reflux uropathy, unspecified; N20.1 Calculus of ureter; G40.909 Epilepsy, unspecified, not intractable, without status epilepticus; I10 Essential (primary) hypertension; E11.9 Type 2 diabetes mellitus without complications; F17.200 Nicotine dependence, unspecified, uncomplicated

== ENCOUNTER 2017-01-19 06:24 | Observation (INO) | payer MEDICAID ==
[~2017-01-19] VITALS: Ht 162.6 cm; Wt 60.5 kg
[2017-01-19] MEDS ORDERED: FLOMAX0.4 MG PO (16:42)
[2017-01-19] MEDS ORDERED: NORCO 7.5/325 T1 TA1 PO (16:42)
[2017-01-19] MEDS ORDERED: NEURONTIN 300300 MG PO (16:43)
[2017-01-19 16:48] VITALS: Ht 162.6 cm; Wt 60.5 kg
[2017-01-23 08:00] VITALS: BP 107/71
== END 2017-01-23 13:48 | disposition home or self-care (01) ==
LOC: D.ER 06:24 → OBSVTIME 15:03 → D.M2 15:03
PROVIDERS: ADMIT Urology
DX: N20.1 Calculus of ureter (principal); J44.9 Chronic obstructive pulmonary disease, unspecified

== ENCOUNTER 2017-01-28 17:06 | Emergency (ER) | payer MEDICAID ==
[2017-01-19 16:48] VITALS: BMI 35.6
[~2017-01-28 17:06] MED LIST changes: +FLOMAX0.4 MG PO; +NEURONTIN 300300 MG PO; +NORCO 7.5/325 T1 TA1 PO
== END 2017-01-28 20:47 | disposition home or self-care (01) ==
LOC: D.ER 17:06
DX: Z98.890 Other specified postprocedural states (principal); N32.89 Other specified disorders of bladder; G40.909 Epilepsy, unspecified, not intractable, without status epilepticus; I10 Essential (primary) hypertension

== ENCOUNTER → 2017-03-02 18:01 | Outpatient (CLI) | payer MEDICAID ==
[2017-01-19 16:48] VITALS: BMI 35.6
== END | disposition home or self-care (01) ==
LOC: D.LABREF 18:01
DX: D72.0 Genetic anomalies of leukocytes (principal); N39.0 Urinary tract infection, site not specified

== ENCOUNTER → 2017-03-18 18:38 | Outpatient (CLI) | payer MEDICAID ==
[2017-01-19 16:48] VITALS: BMI 35.6
== END | disposition home or self-care (01) ==
LOC: D.LABREF 18:38
DX: N39.0 Urinary tract infection, site not specified (principal)

== ENCOUNTER 2017-10-04 20:49 | Emergency (ER) | payer MEDICAID ==
[2017-01-19 16:48] VITALS: BMI 35.6
[2017-10-04 21:51] LABS: APPEARANCE CLEAR (CLEAR); BILIRUBIN NEGATIVE (NEGATIVE); COLOR YELLOW (YELLOW); GLUCOSE NEGATIVE (NEGATIVE); KETONE NEGATIVE (NEGATIVE); NITRITE NEGATIVE (NEGATIVE); PROTEIN NEGATIVE (NEGATIVE); SPECIFIC GRAVITY 1.015 (1.005-1.020); UROBILINOGEN NORMAL (NORMAL)
[2017-10-04 21:51] LABS: BASOPHILS 0.3 % (0-2); EOSINOPHILS 5.6 % (0-7); HEMATOCRIT 39.2 % (42.0-54.0); HEMOGLOBIN 13.8 g/dL (13.5-17.5); IMMATURE GRANULOCYTES 0.1 % (0-5); LYMPHOCYTES 29.9 % (15-50); MCH 32.4 pg (26.0-34.0); MCHC 35.2 g/dL (31.0-37.0); MEAN PLATELET VOLUME 9.7 fL (7.4-10.4); MONOCYTES 14.1 % (2-11); PLATELET COUNT 229 10x3/uL (130-400); RBC 4.26 10x6/uL (4.20-6.10); RDW 12.4 % (11.5-14.5); WBC 7.5 10x3/uL (4.8-10.8)
[2017-10-04 21:56] LABS: UDS - AMPHET POSITIVE QUAL (NEGATIVE); UDS - BARB NEGATIVE QUAL (NEGATIVE); UDS - BENZO NEGATIVE QUAL (NEGATIVE); UDS - COCAINE NEGATIVE QUAL (NEGATIVE); UDS - OPIATE NEGATIVE QUAL (NEGATIVE); UDS - PCP NEGATIVE QUAL (NEGATIVE); UDS - THC POSITIVE QUAL (NEGATIVE)
[2017-10-04 22:01] LABS: ALBUMIN 3.3 g/dL (3.4-5.0); ALKALINE PHOSPHATASE 86 U/L (46-116); ALT (SGPT) 55 U/L (10-68); BILIRUBIN - TOTAL 0.28 mg/dL (0.2-1.3); CALC OSMOLALITY 286 mosm/kg (275-300); CALCIUM 8.6 mg/dL (8.5-10.1); CARBON DIOXIDE 27.1 mmol/L (21.0-32.0); CHLORIDE - SERUM 107 mmol/L (98-107); CREATINE KINASE 158 UL (21-232); CREATININE - SERUM 0.9 mg/dL (0.6-1.3); GLUCOSE 104 mg/dL (74-106); POTASSIUM - SERUM 3.5 mmol/L (3.5-5.1); PROTEIN - SERUM 6.9 g/dL (6.4-8.2); SODIUM 142 mmol/L (136-145); UREA NITROGEN 24 mg/dL (7-18); eGFR NON AFRICAN AMERICAN > 90 mL/min (90-120)
[2017-10-04 22:03] LABS: PHENYTOIN (DILANTIN) 0.5 ug/mL (10.0-20.0)
== END 2017-10-04 22:40 | disposition home or self-care (01) ==
LOC: D.ER 20:49
PROVIDERS: Family Medicine
DX: G40.909 Epilepsy, unspecified, not intractable, without status epilepticus (principal); F19.10 Other psychoactive substance abuse, uncomplicated; Z91.14 Patient's other noncompliance with medication regimen; I10 Essential (primary) hypertension; F17.200 Nicotine dependence, unspecified, uncomplicated

== ENCOUNTER 2017-10-08 11:43 | Emergency (ER) | payer MEDICAID ==
[~2017-10-08] VITALS: Ht 177.8 cm; Wt 77.1 kg
[2017-10-08 11:48] VITALS: Ht 177.8 cm; Wt 77.1 kg
[2017-10-08 12:41] LABS: BASOPHILS 0.3 % (0-2); EOSINOPHILS 4.5 % (0-7); HEMATOCRIT 37.6 % (42.0-54.0); IMMATURE GRANULOCYTES 0.1 % (0-5); LYMPHOCYTES 30.3 % (15-50); MCH 31.8 pg (26.0-34.0); MCHC 34.6 g/dL (31.0-37.0); MCV 91.9 fL (80.0-100.0); MEAN PLATELET VOLUME 9.2 fL (7.4-10.4); MONOCYTES 10.9 % (2-11); NEUTROPHILS 53.9 % (40-80); PLATELET COUNT 195 10x3/uL (130-400); RBC 4.09 10x6/uL (4.20-6.10); RDW 12.3 % (11.5-14.5); WBC 7.4 10x3/uL (4.8-10.8)
[2017-10-08 13:00] LABS: ALKALINE PHOSPHATASE 70 U/L (46-116); ALT (SGPT) 52 U/L (10-68); BILIRUBIN - TOTAL 0.41 mg/dL (0.2-1.3); CALC OSMOLALITY 283 mosm/kg (275-300); CALCIUM 8.9 mg/dL (8.5-10.1); CARBON DIOXIDE 28.5 mmol/L (21.0-32.0); CHLORIDE - SERUM 107 mmol/L (98-107); GLUCOSE 104 mg/dL (74-106); POTASSIUM - SERUM 3.9 mmol/L (3.5-5.1); PROTEIN - SERUM 6.4 g/dL (6.4-8.2); SODIUM 141 mmol/L (136-145); UREA NITROGEN 21 mg/dL (7-18); eGFR NON AFRICAN AMERICAN 85 mL/min (90-120)
[2017-10-08 13:07] LABS: APTT 33.2 SECONDS (22.8-39.4)
[2017-10-08 13:13] LABS: CKMB 3.6 U/L (0.0-3.6); CREATINE KINASE 137 UL (21-232); PRO BNP 51 pg/mL (0-125)
[2017-10-08 13:14] LABS: INR 1.06 (0.85-1.17); PROTIME 13.4 SECONDS (11.6-15.0)
[2017-10-08 13:27] LABS: TROPONIN-I < 0.017 ng/mL (0.000-0.060)
[2017-10-08] MEDS ORDERED: VIBRAMYCIN 100100 M1 IV (14:05)
[2017-10-08] MEDS ORDERED: PROAIR HFA8.5 GM INH (14:05)
[2017-10-08 14:44] VITALS: BP 110/62
== END 2017-10-08 14:44 | disposition home or self-care (01) ==
LOC: D.ER 11:43
PROVIDERS: Family Medicine
DX: J20.9 Acute bronchitis, unspecified (principal); F15.10 Other stimulant abuse, uncomplicated; J44.9 Chronic obstructive pulmonary disease, unspecified; I25.10 Atherosclerotic heart disease of native coronary artery without angina pectoris; R07.9 Chest pain, unspecified; E11.9 Type 2 diabetes mellitus without complications; Z79.4 Long term (current) use of insulin; I10 Essential (primary) hypertension; F17.200 Nicotine dependence, unspecified, uncomplicated

== ENCOUNTER 2017-12-13 19:15 | Emergency (ER) | payer MEDICAID ==
[~2017-12-13] VITALS: Ht 177.8 cm; Wt 77.3 kg
[~2017-12-13 19:15] MED LIST changes: +VIBRAMYCIN 100100 M1 IV
[2017-12-13 19:18] VITALS: Ht 177.8 cm; Wt 77.3 kg
[2017-12-13 19:41] LABS: BASOPHILS 0.3 % (0-2); EOSINOPHILS 23.2 % (0-7); HEMATOCRIT 40.1 % (42.0-54.0); IMMATURE GRANULOCYTES 0.1 % (0-5); LYMPHOCYTES 32.5 % (15-50); MCH 31.9 pg (26.0-34.0); MCHC 34.9 g/dL (31.0-37.0); MCV 91.3 fL (80.0-100.0); MEAN PLATELET VOLUME 9.6 fL (7.4-10.4); MONOCYTES 9.1 % (2-11); NEUTROPHILS 34.8 % (40-80); PLATELET COUNT 203 10x3/uL (130-400); RBC 4.39 10x6/uL (4.20-6.10); RDW 12.6 % (11.5-14.5); WBC 8.6 10x3/uL (4.8-10.8)
[2017-12-13 19:51] LABS: APTT 31.6 SECONDS (22.8-39.4); INR 0.99 (0.85-1.17); PROTIME 12.7 SECONDS (11.6-15.0)
[2017-12-13 20:01] LABS: ALBUMIN 3.3 g/dL (3.4-5.0); ALKALINE PHOSPHATASE 75 U/L (46-116); ALT (SGPT) 73 U/L (10-68); BILIRUBIN - TOTAL 0.42 mg/dL (0.2-1.3); CALC OSMOLALITY 284 mosm/kg (275-300); CALCIUM 8.8 mg/dL (8.5-10.1); CARBON DIOXIDE 26.5 mmol/L (21.0-32.0); CHLORIDE - SERUM 107 mmol/L (98-107); CREATININE - SERUM 0.9 mg/dL (0.6-1.3); GLUCOSE 93 mg/dL (74-106); POTASSIUM - SERUM 3.7 mmol/L (3.5-5.1); PROTEIN - SERUM 6.6 g/dL (6.4-8.2); SODIUM 142 mmol/L (136-145); UREA NITROGEN 17 mg/dL (7-18); eGFR NON AFRICAN AMERICAN > 90 mL/min (90-120)
[2017-12-13 20:18] LABS: CKMB 2.1 U/L (0.0-3.6); CREATINE KINASE 102 UL (21-232); PRO BNP 14 pg/mL (0-125)
[2017-12-13 20:19] LABS: TROPONIN-I < 0.017 ng/mL (0.000-0.060)
[2017-12-13] MEDS ORDERED: NEURONTIN 300300 MG PO (20:44)
[2017-12-13] MEDS ORDERED: ZOLOFT50 MG PO (20:44)
[2017-12-13] MEDS ORDERED: DILANTIN100 MG PO (20:44)
[2017-12-13 20:46] VITALS: BP 132/85
== END 2017-12-13 20:47 | disposition home or self-care (01) ==
LOC: D.ER 19:15
PROVIDERS: Family Medicine
DX: S20.219A Contusion of unspecified front wall of thorax, initial encounter (principal); Y04.2XXA Assault by strike against or bumped into by another person, initial encounter; Y93.89 Activity, other specified; Y92.89 Other specified places as the place of occurrence of the external cause; E11.9 Type 2 diabetes mellitus without complications; J44.9 Chronic obstructive pulmonary disease, unspecified; F17.200 Nicotine dependence, unspecified, uncomplicated; Z86.73 Personal history of transient ischemic attack (TIA), and cerebral infarction without residual deficits; Z86.59 Personal history of other mental and behavioral disorders

== ENCOUNTER 2017-12-27 19:45 | Emergency (ER) | payer MEDICAID ==
[~2017-12-27] VITALS: Ht 177.8 cm; Wt 77.1 kg
[~2017-12-27 19:45] MED LIST changes: +ZOLOFT50 MG PO
[2017-12-27 19:46] VITALS: Ht 177.8 cm; Wt 77.1 kg
[2017-12-27] MEDS ORDERED: VOLTAREN75 MG PO (21:07)
[2017-12-27] MEDS ORDERED: ROBAXIN-750750 MG PO (21:07)
[2017-12-27 21:30] VITALS: BP 123/85
== END 2017-12-27 22:28 | disposition home or self-care (01) ==
LOC: D.ER 19:45
DX: M25.552 Pain in left hip (principal); M25.572 Pain in left ankle and joints of left foot; Z86.73 Personal history of transient ischemic attack (TIA), and cerebral infarction without residual deficits; E11.9 Type 2 diabetes mellitus without complications; J44.9 Chronic obstructive pulmonary disease, unspecified; Z86.59 Personal history of other mental and behavioral disorders

== ENCOUNTER 2018-01-17 08:23 | Emergency (ER) | payer MEDICAID ==
[~2018-01-17] VITALS: Ht 162.6 cm; Wt 81.8 kg
[~2018-01-17 08:23] MED LIST changes: +ROBAXIN-750750 MG PO; +VOLTAREN75 MG PO
[2018-01-17 08:24] VITALS: Ht 162.6 cm; Wt 81.8 kg
[2018-01-17] MEDS ORDERED: TORADOL10 MG PO (10:27)
[2018-01-17 11:06] VITALS: BP 136/52
== END 2018-01-17 11:07 | disposition home or self-care (01) ==
LOC: D.ER 08:23
DX: S09.90XA Unspecified injury of head, initial encounter (principal); W20.8XXA Other cause of strike by thrown, projected or falling object, initial encounter; Y93.89 Activity, other specified; Y92.89 Other specified places as the place of occurrence of the external cause; M54.2 Cervicalgia; I10 Essential (primary) hypertension; F17.200 Nicotine dependence, unspecified, uncomplicated

== ENCOUNTER 2018-01-25 11:09 | Emergency (ER) | payer MEDICAID ==
[~2018-01-25] VITALS: Ht 162.6 cm; Wt 77.3 kg
[2018-01-25 11:13] VITALS: Ht 162.6 cm; Wt 77.3 kg
[2018-01-25 12:19] LABS: BASOPHILS 0.3 % (0-2); EOSINOPHILS 25.6 % (0-7); HEMATOCRIT 41.3 % (42.0-54.0); HEMOGLOBIN 14.5 g/dL (13.5-17.5); IMMATURE GRANULOCYTES 0.1 % (0-5); LYMPHOCYTES 22.3 % (15-50); MCH 32.4 pg (26.0-34.0); MCHC 35.1 g/dL (31.0-37.0); MCV 92.4 fL (80.0-100.0); MEAN PLATELET VOLUME 10.4 fL (7.4-10.4); NEUTROPHILS 42.7 % (40-80); PLATELET COUNT 230 10x3/uL (130-400); RBC 4.47 10x6/uL (4.20-6.10); RDW 12.8 % (11.5-14.5); WBC 6.7 10x3/uL (4.8-10.8)
[2018-01-25 12:25] LABS: APTT 31.8 SECONDS (22.8-39.4); INR 1.03 (0.85-1.17); PROTIME 13.1 SECONDS (11.6-15.0)
[2018-01-25 12:27] LABS: ALBUMIN 3.4 g/dL (3.4-5.0); ALKALINE PHOSPHATASE 67 U/L (46-116); ALT (SGPT) 107 U/L (10-68); BILIRUBIN - TOTAL 0.92 mg/dL (0.2-1.3); CALC OSMOLALITY 281 mosm/kg (275-300); CALCIUM 8.9 mg/dL (8.5-10.1); CARBON DIOXIDE 27.7 mmol/L (21.0-32.0); CHLORIDE - SERUM 105 mmol/L (98-107); GLUCOSE 123 mg/dL (74-106); POTASSIUM - SERUM 4.4 mmol/L (3.5-5.1); PROTEIN - SERUM 6.6 g/dL (6.4-8.2); SODIUM 139 mmol/L (136-145); UREA NITROGEN 22 mg/dL (7-18); eGFR NON AFRICAN AMERICAN 85 mL/min (90-120)
[2018-01-25 12:35] LABS: MAGNESIUM - SERUM 2.4 mg/dL (1.8-2.4); PHENYTOIN (DILANTIN) 0.5 ug/mL (10.0-20.0)
[2018-01-25 12:38] LABS: TROPONIN-I < 0.017 ng/mL (0.000-0.060)
[2018-01-25 12:40] LABS: APPEARANCE CLEAR (CLEAR); BILIRUBIN NEGATIVE (NEGATIVE); COLOR DK YELLOW (YELLOW); GLUCOSE NEGATIVE (NEGATIVE); KETONE NEGATIVE (NEGATIVE); NITRITE NEGATIVE (NEGATIVE); PROTEIN NEGATIVE (NEGATIVE); SPECIFIC GRAVITY 1.025 (1.005-1.020)
[2018-01-25 12:44] LABS: UDS - AMPHET POSITIVE QUAL (NEGATIVE); UDS - BARB NEGATIVE QUAL (NEGATIVE); UDS - BENZO NEGATIVE QUAL (NEGATIVE); UDS - COCAINE NEGATIVE QUAL (NEGATIVE); UDS - OPIATE NEGATIVE QUAL (NEGATIVE); UDS - PCP NEGATIVE QUAL (NEGATIVE); UDS - THC POSITIVE QUAL (NEGATIVE)
[2018-01-25] MEDS ORDERED: DILANTIN100 MG PO (12:50)
[2018-01-25 14:49] VITALS: BP 98/63
== END 2018-01-25 18:39 | disposition home or self-care (01) ==
LOC: D.ER 11:09
PROVIDERS: Emergency Medicine
DX: G40.909 Epilepsy, unspecified, not intractable, without status epilepticus (principal); F15.10 Other stimulant abuse, uncomplicated; Z91.14 Patient's other noncompliance with medication regimen; F17.200 Nicotine dependence, unspecified, uncomplicated

== ENCOUNTER → 2018-02-12 | Emergency (ER) | payer MEDICAID ==
[~2018-02-12] VITALS: Ht 162.6 cm; Wt 77.3 kg
[~2018-02-12] MED LIST changes: +ALBUTEROL SULF8.5 GM INH; +MUPIROCIN22 GM TOPICAL
[2018-02-12 14:57] VITALS: BP 108/68; Ht 162.6 cm; Wt 77.3 kg
== END | disposition home or self-care (01) ==
LOC: D.ER 14:46
DX: J44.9 Chronic obstructive pulmonary disease, unspecified (principal); G40.909 Epilepsy, unspecified, not intractable, without status epilepticus; R21 Rash and other nonspecific skin eruption; E11.9 Type 2 diabetes mellitus without complications; E07.9 Disorder of thyroid, unspecified; F17.200 Nicotine dependence, unspecified, uncomplicated

== ENCOUNTER 2018-02-27 11:58 | Emergency (ER) | payer MEDICAID ==
[~2018-02-27] VITALS: Ht 162.6 cm; Wt 77.3 kg
[2018-02-27 12:16] VITALS: Ht 162.6 cm; Wt 77.3 kg
[2018-02-27 12:41] LABS: APPEARANCE CLEAR (CLEAR); BILIRUBIN NEGATIVE (NEGATIVE); COLOR YELLOW (YELLOW); GLUCOSE NEGATIVE (NEGATIVE); KETONE NEGATIVE (NEGATIVE); NITRITE NEGATIVE (NEGATIVE); PROTEIN NEGATIVE (NEGATIVE); SPECIFIC GRAVITY 1.015 (1.005-1.020)
[2018-02-27 12:46] LABS: BASOPHILS 0.2 % (0-2); EOSINOPHILS 11.9 % (0-7); HEMATOCRIT 42.3 % (42.0-54.0); HEMOGLOBIN 14.8 g/dL (13.5-17.5); IMMATURE GRANULOCYTES 0.1 % (0-5); LYMPHOCYTES 20.1 % (15-50); MCH 32.2 pg (26.0-34.0); MEAN PLATELET VOLUME 9.9 fL (7.4-10.4); MONOCYTES 7.7 % (2-11); PLATELET COUNT 233 10x3/uL (130-400); RDW 12.3 % (11.5-14.5); WBC 8.6 10x3/uL (4.8-10.8)
[2018-02-27 12:49] LABS: UDS - AMPHET NEGATIVE QUAL (NEGATIVE); UDS - BARB NEGATIVE QUAL (NEGATIVE); UDS - BENZO NEGATIVE QUAL (NEGATIVE); UDS - COCAINE NEGATIVE QUAL (NEGATIVE); UDS - OPIATE NEGATIVE QUAL (NEGATIVE); UDS - PCP NEGATIVE QUAL (NEGATIVE); UDS - THC NEGATIVE QUAL (NEGATIVE)
[2018-02-27 13:02] LABS: ALBUMIN 3.5 g/dL (3.4-5.0); ALKALINE PHOSPHATASE 70 U/L (46-116); ALT (SGPT) 52 U/L (10-68); BILIRUBIN - TOTAL 0.55 mg/dL (0.2-1.3); CALC OSMOLALITY 276 mosm/kg (275-300); CALCIUM 8.9 mg/dL (8.5-10.1); CARBON DIOXIDE 21.8 mmol/L (21.0-32.0); CHLORIDE - SERUM 106 mmol/L (98-107); CREATININE - SERUM 0.9 mg/dL (0.6-1.3); GLUCOSE 90 mg/dL (74-106); POTASSIUM - SERUM 4.3 mmol/L (3.5-5.1); PROTEIN - SERUM 7.2 g/dL (6.4-8.2); SODIUM 138 mmol/L (136-145); UREA NITROGEN 15 mg/dL (7-18); eGFR NON AFRICAN AMERICAN > 90 mL/min (90-120)
[2018-02-27 18:24] VITALS: BP 102/70
== END 2018-02-27 19:17 ==
LOC: D.ER 11:58
PROVIDERS: Family Medicine
DX: R45.851 Suicidal ideations (principal); F32.9 Major depressive disorder, single episode, unspecified; E11.9 Type 2 diabetes mellitus without complications; E07.9 Disorder of thyroid, unspecified; F17.200 Nicotine dependence, unspecified, uncomplicated

== ENCOUNTER 2018-08-21 09:35 | Emergency (ER) | payer MEDICAID ==
[~2018-08-21] VITALS: Ht 162.6 cm; Wt 77.3 kg
[2018-08-21 09:38] VITALS: Ht 162.6 cm; Wt 77.3 kg
[2018-08-21 10:01] LABS: BASOPHILS 0.5 % (0-2); EOSINOPHILS 12.7 % (0-7); HEMATOCRIT 42.4 % (42.0-54.0); HEMOGLOBIN 15.2 g/dL (13.5-17.5); IMMATURE GRANULOCYTES 0.3 % (0-5); MCH 32.9 pg (26.0-34.0); MCHC 35.8 g/dL (31.0-37.0); MCV 91.8 fL (80.0-100.0); MEAN PLATELET VOLUME 10.2 fL (7.4-10.4); MONOCYTES 8.3 % (2-11); NEUTROPHILS 46.2 % (40-80); PLATELET COUNT 213 10x3/uL (130-400); RBC 4.62 10x6/uL (4.20-6.10); RDW 12.4 % (11.5-14.5); WBC 6.1 10x3/uL (4.8-10.8)
[2018-08-21 10:01] LABS: APPEARANCE CLEAR (CLEAR); BILIRUBIN NEGATIVE (NEGATIVE); COLOR STRAW (YELLOW); GLUCOSE NEGATIVE (NEGATIVE); KETONE NEGATIVE (NEGATIVE); NITRITE NEGATIVE (NEGATIVE); PROTEIN NEGATIVE (NEGATIVE); SPECIFIC GRAVITY 1.015 (1.005-1.020)
[2018-08-21 10:23] LABS: APTT 32.2 SECONDS (22.8-39.4); INR 0.98 (0.85-1.17); PROTIME 12.5 SECONDS (11.6-15.0)
[2018-08-21 10:33] LABS: ALBUMIN 3.7 g/dL (3.4-5.0); ALKALINE PHOSPHATASE 79 U/L (46-116); ALT (SGPT) 105 U/L (10-68); BILIRUBIN - TOTAL 0.54 mg/dL (0.2-1.3); CALC OSMOLALITY 281 mosm/kg (275-300); CALCIUM 9.3 mg/dL (8.5-10.1); CARBON DIOXIDE 27.7 mmol/L (21.0-32.0); CHLORIDE - SERUM 103 mmol/L (98-107); CREATININE - SERUM 0.9 mg/dL (0.6-1.3); GLUCOSE 99 mg/dL (74-106); POTASSIUM - SERUM 4.2 mmol/L (3.5-5.1); PROTEIN - SERUM 7.5 g/dL (6.4-8.2); SODIUM 138 mmol/L (136-145); UREA NITROGEN 29 mg/dL (7-18); eGFR NON AFRICAN AMERICAN > 90 mL/min (90-120)
[2018-08-21 10:44] LABS: CREATINE KINASE 105 UL (21-232)
[2018-08-21 10:50] LABS: TROPONIN-I < 0.017 ng/mL (0.000-0.060)
[2018-08-21] MEDS ORDERED: DILANTIN100 MG PO (13:27)
[2018-08-21] MEDS ORDERED: PHENERGAN DM SYR5 ML PO (13:27)
[2018-08-21] MEDS ORDERED: VOLTAREN75 MG PO (13:27)
[2018-08-21] MEDS ORDERED: BACLOFEN20 M1 PO (13:27)
[2018-08-21 14:38] VITALS: BP 130/79
[2018-08-21] MEDS ORDERED: ALBUTEROL SULF8.5 GM INH (21:00)
[2018-08-21] MEDS ORDERED: COMBIVENT RESPIM4 GM INH (21:00)
== END 2018-08-21 14:38 | disposition home or self-care (01) ==
LOC: D.ER 09:35
PROVIDERS: Family Medicine
DX: G40.909 Epilepsy, unspecified, not intractable, without status epilepticus (principal); J06.9 Acute upper respiratory infection, unspecified

== ENCOUNTER 2018-08-21 20:51 | Emergency (ER) | payer MEDICAID ==
[~2018-08-21] VITALS: Ht 162.6 cm; Wt 90.9 kg
[~2018-08-21 20:51] MED LIST changes: +BACLOFEN20 M1 PO; +PHENERGAN DM SYR5 ML PO
[2018-08-21] MEDS ORDERED: ALBUTEROL SULF8.5 GM INH (21:00)
[2018-08-21] MEDS ORDERED: COMBIVENT RESPIM4 GM INH (21:00)
[2018-08-21 21:06] VITALS: Ht 162.6 cm; Wt 90.9 kg
[2018-08-21 22:07] VITALS: BP 103/65
== END 2018-08-21 22:07 | disposition home or self-care (01) ==
LOC: D.ER 20:51
DX: R07.9 Chest pain, unspecified (principal); J44.9 Chronic obstructive pulmonary disease, unspecified

== ENCOUNTER 2018-08-31 22:10 | Observation (INO) | payer MEDICAID ==
[~2018-08-31] VITALS: Ht 162.6 cm; Wt 77.3 kg
--- NOTE | ~2018-08-31 | DS ---
PATIENT:ELIZABETH JADE :70 MEDICAL RECORD: [id number] DISCHARGE SUMMARY ADMISSION DATE: 08/31/18 DISCHARGE DATE: DISCHARGE DIAGNOSIS: Atypical chest pain. HOSPITAL COURSE: Mr. Jade presents with atypical chest pain. Serial troponins are normal. EKG is with no abnormalities. No changes. No further episodes of chest pain. This is musculoskeletal in nature, noncardiac. No other cardiac workup or treatment is necessary. TRANSINT:[id number] Voice Confirmation ID: [id number] DOCUMENT ID: [id number] CARITO WILKS MD CC: [id number] DICTATION DATE: 09/01/18 0843 CERTIFIED HYPERBARIC TECHNOLOGIST: 09/01/18 1145 ADM IN [place] [id number] [place] [id number]
[~2018-08-31 22:10] MED LIST changes: +COMBIVENT RESPIM4 GM INH
[2018-08-31] MEDS ORDERED: SPIRIVA18 MCG INH (22:22)
[2018-08-31 23:00] LABS: BASOPHILS 0.4 % (0-2); EOSINOPHILS 9.7 % (0-7); HEMATOCRIT 40.2 % (42.0-54.0); HEMOGLOBIN 14.3 g/dL (13.5-17.5); IMMATURE GRANULOCYTES 0.1 % (0-5); LYMPHOCYTES 28.6 % (15-50); MCH 32.6 pg (26.0-34.0); MCHC 35.6 g/dL (31.0-37.0); MCV 91.6 fL (80.0-100.0); MEAN PLATELET VOLUME 9.8 fL (7.4-10.4); MONOCYTES 8.9 % (2-11); NEUTROPHILS 52.3 % (40-80); PLATELET COUNT 225 10x3/uL (130-400); RBC 4.39 10x6/uL (4.20-6.10); RDW 12.2 % (11.5-14.5); WBC 8.3 10x3/uL (4.8-10.8)
[2018-08-31 23:08] LABS: INR 0.98 (0.85-1.17); PROTIME 12.5 SECONDS (11.6-15.0)
[2018-08-31 23:09] LABS: APTT 31.9 SECONDS (22.8-39.4)
[2018-08-31 23:23] LABS: ALBUMIN 3.5 g/dL (3.4-5.0); ALKALINE PHOSPHATASE 67 U/L (46-116); ALT (SGPT) 57 U/L (10-68); BILIRUBIN - TOTAL 0.39 mg/dL (0.2-1.3); CALC OSMOLALITY 286 mosm/kg (275-300); CALCIUM 8.8 mg/dL (8.5-10.1); CARBON DIOXIDE 25.8 mmol/L (21.0-32.0); CHLORIDE - SERUM 106 mmol/L (98-107); CREATININE - SERUM 1.1 mg/dL (0.6-1.3); GLUCOSE 108 mg/dL (74-106); POTASSIUM - SERUM 3.8 mmol/L (3.5-5.1); SODIUM 140 mmol/L (136-145); UREA NITROGEN 32 mg/dL (7-18); eGFR NON AFRICAN AMERICAN 76 mL/min (90-120)
[2018-08-31 23:35] LABS: CKMB 4.3 U/L (0.0-3.6); CREATINE KINASE 139 UL (21-232); MAGNESIUM - SERUM 2.1 mg/dL (1.8-2.4)
[2018-08-31 23:36] LABS: TROPONIN-I < 0.017 ng/mL (0.000-0.060)
[2018-09-01 02:23] VITALS: BP 105/81; Ht 162.6 cm; Wt 77.3 kg
--- NOTE | 2018-09-01 04:58 | NUR ---
RECIEVED REPORT. ROUNDS COMPLETED. AAOX4, VSS, NO S/S OF RR DISTRESS. PT APPEARS LETHARGIC. BUT A GOOD HISTORIAN. INITIAL ASSESSMENT COMPLETED. IN ER. HOLD. PT C/O MILD CHEST PAIN. 06/13, STATES IT IS BETTER THAN WHEN HE FIRST GOT HERE. PT CURRENTLY RESTING IN BED. DENIES ANY FURTHER NEED FOR COMFORT CARE. WILL CTM. CL IN REACH, BED IN LOW, SR UP X2.
[2018-09-01 05:53] VITALS: BP 100/65
[2018-09-01 06:53] LABS: BASOPHILS 0.3 % (0-2); EOSINOPHILS 12.2 % (0-7); HEMATOCRIT 39.3 % (42.0-54.0); HEMOGLOBIN 13.8 g/dL (13.5-17.5); IMMATURE GRANULOCYTES 0.2 % (0-5); LYMPHOCYTES 34.4 % (15-50); MCH 32.2 pg (26.0-34.0); MCHC 35.1 g/dL (31.0-37.0); MCV 91.6 fL (80.0-100.0); MEAN PLATELET VOLUME 9.7 fL (7.4-10.4); MONOCYTES 10.2 % (2-11); NEUTROPHILS 42.7 % (40-80); PLATELET COUNT 221 10x3/uL (130-400); RBC 4.29 10x6/uL (4.20-6.10); RDW 12.5 % (11.5-14.5); WBC 6.5 10x3/uL (4.8-10.8)
[2018-09-01 07:32] LABS: ALBUMIN 3.3 g/dL (3.4-5.0); ALKALINE PHOSPHATASE 59 U/L (46-116); ALT (SGPT) 57 U/L (10-68); BILIRUBIN - TOTAL 0.43 mg/dL (0.2-1.3); CALC OSMOLALITY 282 mosm/kg (275-300); CALCIUM 8.6 mg/dL (8.5-10.1); CARBON DIOXIDE 27.6 mmol/L (21.0-32.0); CHLORIDE - SERUM 106 mmol/L (98-107); CKMB 4.6 U/L (0.0-3.6); CREATINE KINASE 108 UL (21-232); GLUCOSE 94 mg/dL (74-106); POTASSIUM - SERUM 4.2 mmol/L (3.5-5.1); PROTEIN - SERUM 6.5 g/dL (6.4-8.2); SODIUM 138 mmol/L (136-145); TROPONIN-I < 0.017 ng/mL (0.000-0.060); UREA NITROGEN 32 mg/dL (7-18); eGFR NON AFRICAN AMERICAN 85 mL/min (90-120)
--- NOTE | 2018-09-01 10:39 | HP ---
PATIENT: ELIZABETH JADE MEDICAL RECORD: [id number] ACCOUNT: [id number] LOCATION:[place] 9[address]102- : 70 ADMISSION DATE: 08/31/18 PCP: ZAHRA GREEN HISTORY AND PHYSICAL EXAMINATION ADMITTING DIAGNOSES: 1. Atypical chest pain. 2. Chronic obstructive pulmonary disease. 3. Smoking history. HISTORY OF PRESENT ILLNESS: Mr. Jade presents with chest pain on inspiration. EKG is normal. First troponin is normal. No cardiac history. PHYSICAL EXAMINATION: GENERAL APPEARANCE: Well-nourished, well-developed, appears stated age. Level of distress, comfortable. PSYCHIATRIC: Mental status, alert, normal affect. Orientation, oriented to time, place and person. EYES: Lids and conjunctiva, noninjected. No discharge, no pallor. ENT: Lips, teeth, gums, normal dentition. Oropharynx, no cyanosis, no pallor. NECK: Carotid arteries, bilateral normal upstroke, no bruits, no thrills. JUGULAR VEINS: No jugular venous pressure or distention. CERVICAL LYMPH NODES: Nontender, nonenlarged. THYROID: Not enlarged. Nontender. No nodules. LUNGS: Respiratory effort, unlabored. CHEST: Normal curvature. No thoracic deformity. No chest wall tenderness. Percussion, resonant. Auscultation, clear. No wheezes, no rales, no rhonchi. CARDIOVASCULAR: Precordial exam, nondisplaced. No heaves or pericardial thrills. Rate and rhythm, regular. Heart sounds, normal S1, normal S2. No S3, no gallop, no rub. Systolic murmur, not heard. Diastolic murmur, not heard. EXTREMITIES: No cyanosis, no edema. Peripheral pulses, full and equal in all extremities, except as noted. No bruits appreciated. ABDOMEN: Soft, nondistended. Normal aorta. No bruit. Nontender. No masses. Liver, nontender, no hepatomegaly. Spleen, nontender, no splenomegaly. MUSCULOSKELETAL: No joint tenderness. No joint swelling. No erythema. NEUROLOGICAL: Normal gait, normal strength, normal tone. SKIN: Warm and dry. OVERALL IMPRESSION: Chest pain, atypical. We will repeat troponin. If this is normal, no other cardiac workup or treatment is necessary. TRANSINT:[id number] Voice Confirmation ID: [id number] DOCUMENT ID: [id number] CARITO WILKS MD at 1039 CC: [id number] DICTATION DATE: 09/01/1842 FIREMAN HELPER: 09/01/[address] [facility] [address] [place] [id number]
[2018-09-01 11:50] LABS: CKMB 4.5 U/L (0.0-3.6); CREATINE KINASE 106 UL (21-232)
[2018-09-01 11:51] LABS: TROPONIN-I < 0.017 ng/mL (0.000-0.060)
== END 2018-09-01 12:26 | disposition home or self-care (01) ==
LOC: D.ER 22:10 → D.EDHOLD 23:26 → OBSVTIME 23:26 → D.EDHOLD 23:26
PROVIDERS: Family Medicine; ADMIT Internal Medicine Interventional Cardiology; ATTEND Internal Medicine Interventional Cardiology
DX: R07.89 Other chest pain (principal); J44.9 Chronic obstructive pulmonary disease, unspecified; Z87.891 Personal history of nicotine dependence

== ENCOUNTER 2018-10-20 15:56 | Emergency (ER) | payer MEDICAID ==
[~2018-10-20] VITALS: Ht 162.6 cm; Wt 77.3 kg
[~2018-10-20 15:56] MED LIST changes: +SPIRIVA18 MCG INH
[2018-10-20 16:18] VITALS: BP 131/66; Ht 162.6 cm; Wt 77.3 kg
[2018-10-20 16:54] LABS: APPEARANCE CLEAR (CLEAR); BILIRUBIN NEGATIVE (NEGATIVE); COLOR YELLOW (YELLOW); GLUCOSE NEGATIVE (NEGATIVE); KETONE NEGATIVE (NEGATIVE); NITRITE NEGATIVE (NEGATIVE); PROTEIN NEGATIVE (NEGATIVE); SPECIFIC GRAVITY 1.015 (1.005-1.020); UROBILINOGEN NORMAL (NORMAL)
== END 2018-10-20 18:25 | disposition left against medical advice (07) ==
LOC: D.ER 15:56
PROVIDERS: Family Medicine
DX: R10.9 Unspecified abdominal pain (principal); R30.0 Dysuria

== ENCOUNTER 2019-02-03 09:53 | Emergency (ER) | payer MEDICAID ==
[~2019-02-03] VITALS: Ht 162.6 cm; Wt 77.3 kg
[2019-02-03 09:55] VITALS: Ht 162.6 cm; Wt 77.3 kg
--- NOTE | 2019-02-03 12:56 | NUR ---
DR. NAIR NOTIFIED AND REVIEWED BEHAVIOR AND ASSESSMENT RESULTS. PT IS A LOW RISK PER DR. NAIR. DR. NAIR STATED TO GIVE RESOURCES TO PT AT TIME OF DISCHARGE. NO FURTHER ORDERS AT THIS TIME. RESOURCES REVIEWED WITH PT AND HE VERBALIZIED UNDERSTANDING.
[2019-02-03 14:00] VITALS: BP 111/77
== END 2019-02-03 14:02 | disposition home or self-care (01) ==
LOC: D.ER 09:53
DX: R51 Headache (principal); M25.552 Pain in left hip; Y09 Assault by unspecified means; E11.9 Type 2 diabetes mellitus without complications; F17.210 Nicotine dependence, cigarettes, uncomplicated; I11.0 Hypertensive heart disease with heart failure; I50.9 Heart failure, unspecified

== ENCOUNTER 2019-04-04 19:49 | Observation (INO) | payer MEDICAID ==
[~2019-04-04] VITALS: Ht 162.6 cm; Wt 88.2 kg
[2019-04-04] VITALS (8 sets, daily range): BP systolic 76–112; BP diastolic 29–80
--- NOTE | ~2019-04-04 | OP ---
PATIENT NAME: ELIZABETH MCKEON MEDICAL RECORD: [id number] :70 LOCATION:D.M2 D.2118 ADMISSION DATE:04/04/19 SURGEON: MIKIE BRANCH MD DATE OF OPERATION: 04/05/2019 PROCEDURE: Left heart catheterization, selective coronary angiography, right femoral artery approach. CATHETERS: A 5-Haitian sheath, 5/4 left and right Giovani, 5/4 pig. The procedure was well tolerated. The patient was returned to the bernstein, sheath removed. ExoSeal device placed. FINDINGS: Left ventriculography in 30-degree CLEMENS view: Normal wall motion, normal systolic function. CORONARY ANATOMY: LEFT MAIN: Left main is free of disease. LAD: Free of disease in the diagonal system. CIRCUMFLEX: Free of disease in the marginal system. RIGHT CORONARY ARTERY: Dominant artery, gives rise to PDA, free of disease. IMPRESSION: Normal left ventricular systolic function, normal coronary anatomy. TRANSINT:[id number] Voice Confirmation ID: [id number] DOCUMENT ID: [id number] MIKIE BRANCH MD CC: [id number] DICTATION DATE: 04/05/19 1328 SALES AND SERVICE AGENT: 04/05/19 1526 ADM IN [facility] [address] [place] [address]
--- NOTE | ~2019-04-04 | HEMODYNAMI ---
PATIENT:ELIZABETH MCKEON MEDICAL RECORD: [id number] : 70 [facility] ADMISSION DATE: 04/04/19 Generatedon:04/05/201913:24 Patient name: ELIZABETH MCKEON Patient #: [id number] SSN: [id number] : 1970 Date of study: 04/05/2019 Page: Of Hemodynamic Procedure Report Patient Data Patient Demographics Procedure consent was obtained First Name: ELIZABETH Gender: Male Last Name: MIKE : 1970 Patient #: [id number] Age: 48 year(s) Race: SSN: [id number] Additional ID: [id number] Contact details [address]: [address] [place] [address] State: [place] City: [place] Zip code: [address] Past Medical History Allergies Allergen Reaction Date Comments Reported Other allergy 12/19/2016 Codeine, Morphine, Tylenol, Sulfa Admission Admission Data Admission Date: 04/04/2019 Admission Time: 22:08 Arrival Date: 04/05/2019 Arrival Time: 22:08 Admit Source: Other Insurance Payor: Medicaid Room #: D.2118 [facility] #: [id number] Height (in.): 64.17 BSA: 1.93 (m2) Height (cm.): 163 BMI: 33.12 (kg/m2) Weight (lbs.): 194.01 Weight (kg.): 88 Lab Results Lab Result Date: 04/05/2019 Lab Result Time: 0:00 Biochemistry Name Units Result Min Max BUN mg/dl 21 --(----)-* 7 18 Creatinine mg/dl 1 --(--*-)-- 0.6 1.3 eGFR ml/min 85.89308 -*(----)-- 90 120 NONAFRICAN CBC Name Units Result Min Max Hemoglobin g/dl 14.9 --(-*--)-- 13.5 17.5 Procedure Procedure Types Cath Procedure Diagnostic Procedure [facility] w/Coronaries Sedation Charges Moderate Sedation up to 15 minutes Procedure Description Procedure Date Procedure Date: 04/05/2019 Procedure Start Time: 13:12 Procedure End Time: 13:22 Procedure Staff Name Function Malik Webb MD Performing Physician Dot Ball RT Monitor Ginger Champagne RT Scrub Sabino Hendrix RN Nurse Procedure Data Cath Procedure Fluoroscopy Diagnostic fluoroscopy Total fluoroscopy Time: 1 time: 1 min min Diagnostic fluoroscopy Total fluoroscopy dose: 464 dose: 464 mGy mGy Contrast Material Contrast Material Type Amount (ml) Isovue 300 55 Entry Location Entry Primary Successful Side Size Upsize Upsize Entry Closure Succes sful Closure Location (Fr) 1 (Fr) 2 (Fr) Remarks Device Remarks Femoral Right 5 Fr Exoseal artery Estimated blood loss: 5 ml Diagnostic catheters Device Type Used For End Catheter Placement MULTIPACK JL 4.0 5Fr Left Coronary catheter Angiography MULTIPACK 3DRC 5Fr Right Coronary catheter Angiography MULTIPACK Pigtail 5 Fr LV Angiography catheter Procedure Complications No complications Procedure Medications Medication Administration Route Dosage Solumedrol I.V. 125 mg Versed I.V. 2 mg Fentanyl I.V. 100 mcg Benadryl I.V. 50 mg Oxygen etCO2 Nasal cannula 2 l/min Lidocaine 2% added to field 20 Heparin Flush Bag added to field 2 bags (1000units/500ml NS) 0.9% NaCl I.V. 100 ml/hr Versed I.V. 1 mg Hemodynamics Rest BSA: 1.93 (m2) HGB: 14.9 (g/dl) O2 Consumption: Estimated: 226.11 (ml/min) O2 Co nsumption indexed: Estimated:117.16 (ml/min/m) Heart Rate: 62 (bpm) Pressure Samples Time Site Value (mmHg) Purpose Heart Use Rate(bpm) 13:17 AO 104/34(46) Snapshot 63 Snapshots Pre Cath Intra NCS Post Cath Vital Signs Time Heart Resp SPO2 etCO2 NIBP (mmHg) Rhythm Pain Sedation Rate (ipm) (%) (mmHg) Status Level (bpm) 13:02:09 59 16 100 28.4 116/68(104) NSR 0 (11) 10(A) , No pain 13:06:14 66 19 100 32.8 122/72(87) NSR 0 (11) 10(A) , No pain 13:10:23 59 17 97 29.8 109/77(93) NSR 0 (11) 9(A) , No pain 13:14:28 62 17 98 29.1 111/65(79) NSR 0 (11) 10(A) , No pain 13:18:32 75 18 98 36.6 109/76(94) NSR 0 (11) 10(A) , No pain 13:22:32 71 9 99 37.3 104/67(86) NSR 0 (11) 10(A) , No pain Medications Time Medication Route Dose Verified Delivered Reason Notes Eff ectiveness by by 13:00:20 Benadryl I.V. 50 mg Malik Gallo used for [place] Hendrix reinforcing metal worker 13:01:45 Oxygen etCO2 2 Malik Joyie used for Nasal l/min [facility] reinforcing metal worker cannula 13:03:13 0.9% NaCl I.V. 100 Malik Malik Per ml/hr [facility] Aba davis MD, MD 13:03:51 Lidocaine 2% added 20ml Malik Gan for local to vial [facility] anesthetic field MD MACDONALD 13:03:57 Heparin Flush added 2 Malik Malik used for Bag to bags [facility] procedure (1000units/500ml field MD MACDONALD NS) 13:04:38 Solumedrol I.V. 125 Malik Gallo Per mg Tracey Ruma RN physician 13:07:27 Versed I.V. 2 mg Malik [address]ie for [facility] Aba Hendrix RN sedation 13:07:32 Fentanyl I.V. 100 Malik Hamiltonie for mcg Tracey Ruma RN sedation 13:13:16 Versed I.V. 1 mg Malik Gan for [facility] John sedation MD MACDONALD Procedure Log Time Note 12:35:28 Informed consent obtained and on chart 12:38:45 Admit Source: Other 12:38:47 Arrival Date: 04/05/2019 10:08:00 PM 12:39:23 Insurance Payor : Medicaid 12:39:36 Patient Height : 64.17 inches 12:39:40 Patient Weight : 194.01 lbs 12:40:45 Lab Result : Creatinine 1 mg/dl 12:40:45 Lab Result : BUN 21 mg/dl 12:40:45 Lab Result : eGFR NONAFRICAN 85.53015 ml/min 12:40:45 Lab Result : Hemoglobin 14.9 g/dl 12:40:55 2) 60-89 Mildly reduced kidney function, and other findings (as for stage 1) point to kidney disease. 12:40:58 Maximum allowable contrast dose (3.7 X eGFR X 0.75)235 ml. 12:41:31 Procedure Status Urgent Heart Cath (IP). 12:41:40 Diagnostic Cath Status : Urgent 12:42:09 Sabino Hendrix RN sent for patient. Start room use. 12:42:11 Time tracking: Regular hours (M-F 7:00 - 5:00) 12:42:15 Plan of Care:Hemodynamics will remain stable., Cardiac rhythm will remain stable., Comfort level will be maintained., Respiratory function will remain adequate., Patient/ family verbilizes understanding of procedure., Procedure tolerated without complication., Recovers from procedure without complications.. 12:50:43 Patient received from Med II to CCL 2 Alert and oriented. Tansferred to table in Supine position. 13:00:20 Benadryl 50 mg I.V. was administered by Sabino Hendrix RN; used for procedure; Verbal order read back and verified. 13:01:03 Warm blankets applied, and freedom hugger turned on for patient comfort. 13:01:04 Correct patient and procedure confirmed by team. 13:01:04 ECG and BP/O2 sat monitors applied to patient. 13:01:05 Vital chart was started 13:01:23 Baseline sample Acquired. 13:01:28 Rhythm: sinus rhythm 13:01:31 Full Disclosure recording started 13:01:45 Oxygen 2 l/min etCO2 Nasal cannula was administered by Sabino Hendrix RN; used for procedure; Verbal order read back and verified. 13:01:48 H&P Date Dictated: 04/05/2019 New H&P dictated by physician.. 13:01:55 Pre-procedure instructions explained to patient. 13:01:56 Pre-op teaching completed and patient verbalized understanding. 13:01:57 Family unavailable. 13:02:11 Patient NPO since Midnight. 13:02:13 Is the patient allergic to Iodine/contrast media? No. 13:02:14 Was the patient premedicated? Yes 13:02:52 patient states allergy to shellfish; given [address] Webb 13:02:57 Is patient on blood thinner?No 13:02:59 Patient diabetic? Yes. 13:03:00 If diabetic: On Metformin? No 13:03:02 Previous problem with sedation/anesthesia? No ? 13:03:04 Snore? Yes 13:03:06 Sleep apnea? No 13:03:08 Deviated septum? No 13:03:08 Opens mouth fully? Yes 13:03:09 Sticks out tongue? Yes 13:03:12 Airway obstruction? Yes copd 13:03:13 0.9% NaCl 100 ml/hr I.V. was administered by Malik Webb MD; Per physician; Verbal order read back and verified. 13:03:16 Dentures? No ? 13:03:25 Pre procedure: right dorsailis pedis pulse 2+ Normal; easily identifiable; not easily obliterated 13:03:27 Pre procedure: left dorsailis pedis pulse 2+ Normal; easily identifiable; not easily obliterated 13:03:29 Patient pain scale 0/10 ?. 13:03:36 IV patent on arrival in left forearm with 0.9% NaCl at [facility]. 13:03:38 Lab results completed and on chart. 13:03:42 Risk of Mortality: 1 13:03:46 Risk of blood transfusion: 0.5 13:03:50 Risk of MARIELLA: 5.2 13:03:51 Lidocaine 2% 20ml vial added to field was administered by Malik Webb MD; for local anesthetic; Verbal order read back and verified. 13:03:54 Right groin area was prepped with chlora-prep and draped in sterile fashion 13:03:55 Alarms reviewed by R. N. 13:03:55 Sharps counted by scrub and verified by R.N. 13:03:56 Physician arrived 13:03:57 Heparin Flush Bag (1000units/500ml NS) 2 bags added to field was administered by Malik Webb MD; used for procedure; Verbal order read back and verified. 13:03:57 --------ALL STOP TIME OUT------ 13:03:57 Final Timeout: patient, procedure, and site verified with staff and physician. All members of the team are in agreement. 13:03:59 Right groin site verified by team. 13:04:02 Fire Safety Assessment: C--Open oxygen or nitrous oxide is being used., D--An ESU, laser, or fiber-optic light is being used. 13:04:05 Physical assessment completed. ASA score P 2 - A patient with mild systemic disease as per Malik Webb MD. 13:04:10 Sedation plan: IV Moderate Sedation Medication:Versed, Fentanyl 13:04:38 Solumedrol 125 mg I.V. was administered by Sabino Hendrix RN; Per physician; Verbal order read back and verified. 13:06:53 Use device set Femoral Dx 13:06:54 ACIST Syringe (18392) opened to sterile field. 13:06:54 Bag Decanter (2002S) opened to sterile field. 13:06:54 Medline Cath Pack ([id number]) opened to sterile field. 13:06:55 ACIST Hand Control (60438) opened to sterile field. 13:06:56 ACIST Manifold (18389) opened to sterile field. 13:06:56 DIAGNOSTIC Multipack 5Fr catheter set (YS6296) opened to sterile field. 13:06:57 Tegaderm 4 x 4 (1626W) opened to sterile field. 13:06:59 SHEATH 5FR [place] (MXP400) opened to sterile field. 13:06:59 EMERALD Guide Wire (257-630) opened to sterile field. 13:07:27 Versed 2 mg I.V. was administered by Sabino Hendrix RN; for sedation; Verbal order read back and verified. 13:07:32 Fentanyl 100 mcg I.V. was administered by Sabino Hendrix RN; for sedation; Verbal order read back and verified. 13:12:27 Procedure started. 13:12:29 Local anesthetic to right femoral artery with Lidocaine 2% by Malik Webb MD.INITIAL ACCESS ONLY 13:12:37 A 5 Fr sheath was inserted into the Right Femoral artery 13:13:16 Versed 1 mg I.V. was administered by Malik Webb MD; for sedation; Verbal order read back and verified. 13:13:23 A MULTIPACK JL 4.0 5Fr catheter was advanced over the wire and used for Left Coronary Angiography. 13:13:42 LCA angiography performed. 13:13:45 Injector settings: Ml/sec: 3, Volume: 6, 13:14:34 Catheter removed. 13:14:38 A MULTIPACK 3DRC 5Fr catheter was advanced over the wire and used for Right Coronary Angiography. 13:15:56 DIAGNOSTIC WIRE .035 260cm J wire (050575) opened to sterile field. 13:17:55 RCA angiography performed. 13:17:58 Catheter removed. 13:18:16 A MULTIPACK Pigtail 5 Fr catheter was advanced over the wire and used for LV Angiography. 13:18:26 LV hemodynamics recorded. 13:18:30 LV gram done using CLEMENS 13:18:33 Injector settings: Ml/sec: 5, Volume: 15, 13:18:36 EF : 65 % 13:18:42 Catheter removed. 13:19:23 Sheath removed intact; hemostasis achieved with Exoseal to the Right Femoral artery. 13:20:04 Procedure ended.(Physican Out) 13:20:23 Fluoroscopy time 01.00 minutes. 13:20:35 Fluoroscopy dose: 464 mGy 13:20:35 Flurop Dose total: 464 13:20:46 Dose Area Product 09844 mGy/cm. 13:20:50 Contrast amount:Isovue 300 55ml. 13:20:54 Maximum allowable dose exceeded? No. 13:20:55 Sharps counted by scrub and verified by R.N. 13:20:56 Insertion/operative site no bleeding no hematoma. 13:21:24 Post right femoral artery:stable 13:21:26 Post Procedure Pulses reassessed and unchanged 13:21:29 Post procedure rhythm: unchanged. 13:21:33 Estimated blood loss: 5 ml 13:21:35 Post procedure instruction explained to patient.Patient verbalizes understanding. 13:21:35 Patient needs reinforcement of post procedure teaching. 13:21:45 Procedure type changed to Cath procedure, Diagnostic procedure, LHC, [facility] w/Coronaries, Sedation Charges, Moderate Sedation up to 15 minutes 13:21:46 Procedure and supply charges have been captured, reviewed, submitted and are correct. 13:21:50 Procedure Complication : No complications 13:21:53 Vital chart was stopped 13:21:56 [facility] Findings: mild to moderate CAD (<70%) 13:21:58 Operative report dictated upon procedure completion. 13:21:58 See physician's report for complete and final results. 13:22:01 Report given to [facility]. 13:22:03 Patient transfered to Med II with Stretcher. 13:22:05 Procedure ended. 13:22:05 Full Disclosure recording stopped 13:22:11 End room use (Document Last) 13:22:51 EXOSEAL 5Fr (EX500) opened to sterile field. 13:23:15 MICROPUNCTURE 4FR [place] (V30091) opened to sterile field. Device Usage Item Name Manufacture Quantity Catalog Hospital Part Current Minimal Lot# / Number Charge Number Stock Stock Serial# Code ACIST Syringe Acist 1 81214 446104 138366 376335 20 (76416) Medical Systems Inc Bag Decanter Microtek 1 2001S 276367 03969 517362 5 (2001S) Medical Inc. Medline Cath Medline 1 [id number] 785791 89944 807052 5 Pack ([id number]) ACIST Hand Acist 1 92901 851243 057592 692646 5 Control Medical (30426) Systems Inc ACIST Acist 1 92205 271174 022071 134873 5 Manifold Medical (67529) Systems Inc DIAGNOSTIC Cardinal 1 [id number] 246225 08182 423446 30 Multipack 5Fr Health catheter set (ZT8664) Tegaderm 4 x 3M 1 1626W 462330 789447 708466 5 4 (1626W) SHEATH 5FR Terumo 1 VYY863 683294 622494 608359 5 [place] (CGE840) EMERALD Guide Cardinal 1 502-455 356752 059566 611676 5 Wire Health (502455) MULTIPACK JL Cardinal 1 623772 5 4.0 5Fr Health catheter MULTIPACK Cardinal 1 708361 [address] 3DRC 5[address] Health catheter DIAGNOSTIC [address] Taz 1 303572 775074 491501 053534 30 WIRE .035 260cm J wire (743716) MULTIPACK Cardinal 1 854940 5 Pigtail 5 Fr Health catheter EXOSEAL 5Fr Cardinal 1 EX500 250113 441692 972599 10 (EX500) Health MICROPUNCTURE [facility] 1 X82509 537898 214415 087704 5 4FR [place] (Y69697) Signature Audit [place] Stage Time Signature Unsigned Intra-Procedure 04/05/2019 Dot Ball 1:23:16 PM RT(R) Intra-Procedure 04/05/2019 Sabino Hendrix RN 1:23:56 PM Intra-Procedure 04/05/[address] 1:24:28 PM Aba MD Signatures Performing Physician : Signature : Malik Webb MD Date : Time : Monitor : Dot Ball RT Signature : Date : Time : Nurse : Sabino Hendrix RN Signature : Date : Time : [facility] [address] [place] [address]
[2019-04-04 20:40] LABS: CALC OSMOLALITY 281 mosm/kg (275-300); CALCIUM 9.2 mg/dL (8.5-10.1); CARBON DIOXIDE 28.6 mmol/L (21.0-32.0); CHLORIDE - SERUM 106 mmol/L (98-107); CREATININE - SERUM 1.1 mg/dL (0.6-1.3); GLUCOSE 121 mg/dL (74-106); SODIUM 139 mmol/L (136-145); UREA NITROGEN 22 mg/dL (7-18); eGFR NON AFRICAN AMERICAN 76 mL/min (90-120)
[2019-04-04 20:41] LABS: BASOPHILS 0.3 % (0-2); EOSINOPHILS 4.7 % (0-7); HEMATOCRIT 43.3 % (42.0-54.0); HEMOGLOBIN 14.9 g/dL (13.5-17.5); IMMATURE GRANULOCYTES 0.1 % (0-5); LYMPHOCYTES 31.8 % (15-50); MCH 32.5 pg (26.0-34.0); MCHC 34.4 g/dL (31.0-37.0); MCV 94.3 fL (80.0-100.0); MEAN PLATELET VOLUME 9.8 fL (7.4-10.4); MONOCYTES 8.9 % (2-11); NEUTROPHILS 54.2 % (40-80); PLATELET COUNT 243 10x3/uL (130-400); RBC 4.59 10x6/uL (4.20-6.10); RDW 12.6 % (11.5-14.5); WBC 7.8 10x3/uL (4.8-10.8)
[2019-04-04 20:46] LABS: APTT 31.4 SECONDS (22.8-39.4); INR 1.09 (0.85-1.17); PROTIME 13.6 SECONDS (11.6-15.0)
[2019-04-04 21:00] LABS: ALBUMIN 3.4 g/dL (3.4-5.0); ALKALINE PHOSPHATASE 72 U/L (46-116); ALT (SGPT) 70 U/L (10-68); AMYLASE - SERUM 45 U/L (25-115); BILIRUBIN - TOTAL 0.37 mg/dL (0.2-1.3); CKMB 1.2 U/L (0.0-3.6); CREATINE KINASE 89 UL (21-232); LIPASE 180 U/L (73-393); MAGNESIUM - SERUM 2.2 mg/dL (1.8-2.4)
[2019-04-04 21:05] LABS: TROPONIN-I < 0.017 ng/mL (0.000-0.060)
[2019-04-04] MEDS ORDERED: DILANTIN100 MG PO (23:23)
[2019-04-04] MEDS ORDERED: NEURONTIN 300300 MG PO (23:23)
[2019-04-04] MEDS ORDERED: ZOLOFT50 MG PO (23:24)
--- NOTE | 2019-04-04 23:43 | NUR ---
PT HYPOTENSIVE AT 71/29 AFTER RECEIVING 1 NTG SL. PT PLACED IN [place]EN[place]BURG. ORDER FOR NS BOLUS GIVEN. O2 2L VIA NC PLACED ON PT.
--- NOTE | 2019-04-04 23:45 | NUR ---
NS BOLUS INFUSING, PRESSURE BAG APPLIED.
--- NOTE | 2019-04-04 23:57 | NUR ---
NITRO PASTE PATCH TAKEN OFF D/T DROP IN BP
[2019-04-05 01:27] VITALS: BP 107/71; Ht 162.6 cm; Wt 88.2 kg
[2019-04-05 04:00] VITALS: BP 94/50
[2019-04-05 05:55] LABS: BASOPHILS 0.3 % (0-2); EOSINOPHILS 5.5 % (0-7); HEMOGLOBIN 13.8 g/dL (13.5-17.5); IMMATURE GRANULOCYTES 0.1 % (0-5); LYMPHOCYTES 31.7 % (15-50); MCHC 33.7 g/dL (31.0-37.0); MCV 95.1 fL (80.0-100.0); MEAN PLATELET VOLUME 10.2 fL (7.4-10.4); MONOCYTES 10.7 % (2-11); NEUTROPHILS 51.7 % (40-80); PLATELET COUNT 246 10x3/uL (130-400); RBC 4.31 10x6/uL (4.20-6.10); RDW 12.6 % (11.5-14.5); WBC 7.1 10x3/uL (4.8-10.8)
[2019-04-05 06:21] LABS: ALBUMIN 3.1 g/dL (3.4-5.0); ALKALINE PHOSPHATASE 67 U/L (46-116); ALT (SGPT) 69 U/L (10-68); BILIRUBIN - TOTAL 0.58 mg/dL (0.2-1.3); CALC OSMOLALITY 283 mosm/kg (275-300); CALCIUM 8.8 mg/dL (8.5-10.1); CARBON DIOXIDE 28.3 mmol/L (21.0-32.0); CHLORIDE - SERUM 108 mmol/L (98-107); CKMB 1.1 U/L (0.0-3.6); CREATINE KINASE 60 UL (21-232); GLUCOSE 90 mg/dL (74-106); MAGNESIUM - SERUM 2.1 mg/dL (1.8-2.4); PHOSPHOROUS 3.3 mg/dL (2.5-4.9); POTASSIUM - SERUM 4.4 mmol/L (3.5-5.1); PRO BNP 13 pg/mL (0-125); PROTEIN - SERUM 6.4 g/dL (6.4-8.2); SODIUM 141 mmol/L (136-145); UREA NITROGEN 21 mg/dL (7-18); eGFR NON AFRICAN AMERICAN 85 mL/min (90-120)
[2019-04-05 06:22] LABS: TROPONIN-I < 0.017 ng/mL (0.000-0.060)
[2019-04-05 06:23] LABS: PHENYTOIN (DILANTIN) < 0.5 ug/mL (10.0-20.0)
--- NOTE | 2019-04-05 07:05 | NUR ---
CALLED AND SPOKE WITH CARLA PIMENTEL APN, REGARDING PATIENT BLOOD PRESSURE. PATIENT BP CURRENTLY 78/56. ORDERS GIVEN TO GIVE PATIENT A 500 ML BOLUS OF NORMAL SALINE. CARLA SAID TO CALL IF THE BOLUS IS NOT EFFECTIVE.
[2019-04-05 08:13] VITALS: BP 80/50
--- NOTE | 2019-04-05 08:30 | NUR ---
DR BRANCH NOTIFIED OF B/P 80/50. NS 500CC BOLUS INFUSING.
--- NOTE | 2019-04-05 09:15 | NUR ---
B/P 88/60. CONSENTS SIGNED FOR [facility]. WILL CONT. PLAN OF CARE.
[2019-04-05 09:51] LABS: CHOL - HDL RATIO 3.7 ratio (2.3-4.9); LDL-HDL RATIO 2.5 ratio (1.5-3.5)
[2019-04-05 11:13] VITALS: BP 103/64
[2019-04-05 12:13] LABS: CREATINE KINASE 52 UL (21-232); TROPONIN-I < 0.017 ng/mL (0.000-0.060)
--- NOTE | 2019-04-05 12:48 | NUR ---
LEAVING FOR GAS OPERATOR BY BED. WILL CONT. PLAN OF CARE.
--- NOTE | 2019-04-05 13:47 | NUR ---
BACK FROM COMPO CONVEYOR OPERATOR. VS WNL. RIGHT GROIN STABLE WITHOUT BLEEDING OR HEMATOMA NOTED. WILL MONITOR.
--- NOTE | 2019-04-05 14:03 | CN ---
PATIENT NAME:ELIZABETH MCKEON MEDICAL RECORD: [id number] : 70 LOCATION:[facility] D.2118 ADMIT DATE: 04/04/19 ACCOUNT: [id number] CONSULTING PHYSICIAN: MIKIE BRANCH MD REFERRING PHYSICIAN: TAMI VIVAS MD DATE OF CONSULTATION: 04/05/2019 HISTORY OF PRESENT ILLNESS: A 48-year-old gentleman with a history of coronary artery disease, status post intervention, most recently seen by cardiology in 2017 with no evidence of restenosis admitted with chest pressure and tightness, shortness of breath, also some dizziness, questionable TIA type symptomatology. We are asked to see him concerning his cardiovascular status. PAST MEDICAL HISTORY: Includes: 1. History of seizure disorder, on Dilantin. 2. He has a history of hypertension. 3. Coronary artery disease, status post intervention. 4. Diastolic dysfunction. 5. Diabetes mellitus, dietary controlled. SOCIAL HISTORY: Smokes about a pack a day, intermittent marijuana and meth use. ALLERGIES: MORPHINE, CODEINE, TYLENOL. CHRONIC MEDICATIONS: Include albuterol 2 puffs p.r.n., baclofen 20 mg q.i.d. p.r.n., Spiriva 1 puff daily, Dilantin 100 mg p.o. t.i.d., Voltaren 75 every day, Neurontin 300 b.i.d., Zoloft 50 every day. REVIEW OF SYSTEMS: The patient reports easy bruising but reports no swollen glands. The patient reports no fever, no night sweats, no significant weight gain, no significant weight loss. No significant exercise tolerance. The patient reports no dry eyes, no irritation, no vision change. Patient reports no difficulty hearing and no ear pain. Patient reports no frequent nose bleeds or nose and sinus problems. Patient reports on arm pain on exertion. No shortness of breath while lying down. No history of heart murmur. Patient reports no cough, no wheezing or coughing up blood. Patient reports no abdominal pain, no vomiting. Normal appetite. No diarrhea and not vomiting blood. No nausea and no constipation. Patient reports no incontinence. No difficulty urinating. No hematuria. No increased frequency. Patient reports no muscle aches. No weakness, no arthralgias, no back pain. No swelling of the extremities. Patient reports no abnormal mole, no jaundice, no rashes. Reports no loss of consciousness. No weakness and no numbness. No seizures, dizziness, or headaches. The patient reports no depression, no sleep disturbance, feeling safe in a relationship and no alcohol abuse. Patient reports on fatigue. Reports no runny nose or sinus pressure. No itching, no hives, and no frequent sneezing. PHYSICAL EXAMINATION: GENERAL: Pleasant gentleman in no acute distress. VITAL SIGNS: Blood pressure 80/50, pulse 49 and regular. HEENT: Normocephalic, atraumatic. NECK: No JVD or bruit. HEART: Regular. LUNGS: Chan clear. EXTREMITIES: Pulses 2+ with no edema. CONSULT REPORT [id number] ELIZABETH MCKEON DIAGNOSTIC DATA: EKG shows poor R-wave progression. IMPRESSION: Acute coronary syndrome, known history of coronary artery disease. PLAN: For angiography, intervention based on the above. TRANSINT:[id number] Voice Confirmation ID: [id number] DOCUMENT ID: [id number] MIKIE BRANCH MD at 1403 CC: [id number] DICTATION DATE: 04/05/19 0857 NANOSYSTEMS ENGINEER: 04/05/19 1141 ADM IN [facility] [address] [place] [address]
--- NOTE | 2019-04-05 14:48 | NUR ---
UPON ADMIT, IT STATES THAT PATIENT HAS NOT HAD A FLU SHOT. WHEN QUESTIONED HE SAYS HE HAD ONE AT [facility].
[2019-04-05 15:06] VITALS: BP 105/65
--- NOTE | 2019-04-05 15:36 | NUR ---
BED REST UP. GROIN STABLE.
--- NOTE | 2019-04-05 16:06 | NUR ---
IV AND TELEMETRY DCD. DC PLANS GIVEN. UNDERSTANDING VOICED. ESCORTED TO BUS STOP BY W/C.
--- NOTE | 2019-04-05 17:07 | MORECARE ---
CASE MANAGEMENT DISCHARGE SUMMARY PATIENT: ELIZABETH MCKEON UNIT: [id number] ADM DATE: 04/04/19 AGE: 48 : 70 SEX: M ROOM/BED: D.5972 AUTHOR: NIRAJ,DOC PHYSICIAN: REFERRING PHYSICIAN: TAMI VIVAS MD DATE OF SERVICE: 04/05/19 Discharge Plan Patient Name: ELIZABETH MCKEON Facility: [facility]:[place] : 1970 Planned Disposition: Home Anticipated Discharge Date: 04/05/19 Discharge Date: 04/05/2019 Expected LOS: 1 Initial Reviewer: RINA Initial Review Date: 04/05/2019 Generated: 04/05/19 6:07 pm Comments DCP- Discharge Planning Updated by [email or web address]: Yazan Mast on 04/05/19 4:[address] Patient Name: ELIZABETH MCKEON Admission Status: ER Accout number: [id number] Admission Date: 04-04-2019 : 1970 Admission Diagnosis: Attending: TAMI VIVAS Current LOS: 1 Anticipated DC Date: 04-05-2019 Planned Disposition: Home Primary Insurance: [place]ICAID [place] HOMELESS: REFERRED TO [email or web address] [facility] Discharge Planning Comments: CM NOTIFIED BY NURSE THAT PT NEEDS ASSISTANCE MAKING PHONE CALL. CM ASSISTED PT WITH CALLING SOCIAL SEC[employer]ITY EBT CARD SERVICES. PT PUT HOLD ON HIS ACCOUNT REPORTING HIS WAS STOLEN. SOCIAL SECUITY WILL MAIL NEW EBT CARD TO [employer] FOR PT TO TRANSPORTATION SALES CONSULTANT. CM MET WITH PT IN ROOM TO DISCUSS DISCHARGE PLANNING AND NEEDS. PT REPORTS LIVING ON THE STREETS OF [place] INDEPENDENTLY AND ALONE. PT STATES HE STAYS WHERE HE CAN. PT DOES USE [employer], [employer] AND OTHER SERVICES IN COMMUNITY. PT REPORTS RECEIVING $741 PER MONTH SOCIAL SEC[employer]ITY AND WILL GET AN APARTMENT NEXT MONTH. PT HAS NO MEDICAL EQUIPMENT AND NO OUTSIDE SERVICES ASSISTING IN THE HOME. CM DISCUSSED AVAILABILITY OF HOME HEALTH, REHAB SERVICES AND MEDICAL EQUIPMENT. PT DENIES DISCHARGE NEEDS, PT ASKED FOR BUS PASS TO GET BACK TO [place]. BUS PASS PROVIDED. BEDSIDE NURSE NOTIFIED. Special Day Class Teacher: Yazan Mast DCPIA - Discharge Planning Initial Assessment Updated by [email or web address]: Yazan Mast on 04/05/19 5:01 pm * Is the patient Alert and Oriented? Yes * How many steps to enter\exit or inside your home? NONE * PCP [facility]O [facility], CANNOT REMEMBER NAME * Pharmacy [facility] [place] * Preadmission Environment Home Alone * ADLs Independent * Equipment None * Other Equipment NO MEDICAL EQUIPMENT PROVIDER PREFERENCE * List name and contact numbers for known caregivers / representatives who currently or will assist patient after discharge: NO ONE PER PATIENT * Verbal permission to speak to the caregivers and representatives has been obtained from the patient. No * Community resources currently utilized None * Please name any agencies selected above. NONE * Additional services required to return to the preadmission environment? No * Can the patient safely return to the preadmission environment? Yes * Has this patient been hospitalized within the prior 30 days at any hospital? No Patient Name: ELIZABETH MCKEON Page [id number] at 1707 All edits/amendments must be made on the electronic document DICTATION DATE: 04/05/191706 BOTTOM POUNDER CEMENT SHOES: [place]OV[place] 04/05/191706 RPT#: [id number] DC DATE:04/05/19 STATUS: DIS IN [facility] [address] [place] [address] END OF REPORT
== END 2019-04-05 16:06 | disposition home or self-care (01) ==
LOC: D.ER 19:49 → D.M2 22:08 → OBSVTIME 22:08 → D.M2 22:08
PROVIDERS: Family Medicine; Internal Medicine Interventional Cardiology; ADMIT Internal Medicine Nephrology; ATTEND Internal Medicine Nephrology
DX: I24.9 Acute ischemic heart disease, unspecified (principal); N17.9 Acute kidney failure, unspecified; F19.10 Other psychoactive substance abuse, uncomplicated; E11.9 Type 2 diabetes mellitus without complications; I11.0 Hypertensive heart disease with heart failure; I50.9 Heart failure, unspecified; K21.9 Gastro-esophageal reflux disease without esophagitis; F41.8 Other specified anxiety disorders; I25.10 Atherosclerotic heart disease of native coronary artery without angina pectoris

== ENCOUNTER 2019-04-08 19:30 | Emergency (ER) | payer MEDICAID ==
[~2019-04-08] VITALS: Ht 162.6 cm; Wt 95.5 kg
[2019-04-08 19:35] VITALS: Ht 162.6 cm; Wt 95.5 kg
--- NOTE | 2019-04-08 19:48 | NUR ---
DR. NAIR NOTIFIED AND SITTER ORDERED. SITTER AT BEDSIDE. NOTIFIED CHARGE NURSE AND ATTENDING IN REGARDS TO ASSESSMENT FINDINGS. RESOURCES GIVE TO PT AND SAFETY PLAN INITIATED.
[2019-04-08 19:58] LABS: BASOPHILS 0.2 % (0-2); EOSINOPHILS 2.9 % (0-7); HEMATOCRIT 43.3 % (42.0-54.0); HEMOGLOBIN 15.4 g/dL (13.5-17.5); IMMATURE GRANULOCYTES 0.2 % (0-5); MCH 32.1 pg (26.0-34.0); MCHC 35.6 g/dL (31.0-37.0); MCV 90.2 fL (80.0-100.0); MEAN PLATELET VOLUME 9.7 fL (7.4-10.4); MONOCYTES 12.3 % (2-11); NEUTROPHILS 61.4 % (40-80); PLATELET COUNT 295 10x3/uL (130-400); RDW 12.2 % (11.5-14.5); WBC 11.3 10x3/uL (4.8-10.8)
[2019-04-08 20:09] LABS: CALC OSMOLALITY 284 mosm/kg (275-300); CALCIUM 10.9 mg/dL (8.5-10.1); CARBON DIOXIDE 21.9 mmol/L (21.0-32.0); CHLORIDE - SERUM 106 mmol/L (98-107); CREATININE - SERUM 1.2 mg/dL (0.6-1.3); GLUCOSE 103 mg/dL (74-106); POTASSIUM - SERUM 4.1 mmol/L (3.5-5.1); SODIUM 141 mmol/L (136-145); UREA NITROGEN 23 mg/dL (7-18); eGFR NON AFRICAN AMERICAN 69 mL/min (90-120)
[2019-04-08 20:14] LABS: INR 1.17 (0.85-1.17); PROTIME 14.3 SECONDS (11.6-15.0)
[2019-04-08 20:27] LABS: ALBUMIN 3.9 g/dL (3.4-5.0); ALKALINE PHOSPHATASE 75 U/L (46-116); ALT (SGPT) 56 U/L (10-68); BILIRUBIN - TOTAL 1.18 mg/dL (0.2-1.3); CKMB 3.7 U/L (0.0-3.6); CREATINE KINASE 162 UL (21-232); MAGNESIUM - SERUM 2.2 mg/dL (1.8-2.4); PROTEIN - SERUM 7.7 g/dL (6.4-8.2); THYROID STIMULATING HORMONE 1.36 uIU/mL (0.36-3.74)
[2019-04-08 20:29] LABS: TROPONIN-I < 0.017 ng/mL (0.000-0.060)
[2019-04-09 02:05] LABS: APPEARANCE CLEAR (CLEAR); COLOR DK YELLOW (YELLOW); GLUCOSE NEGATIVE (NEGATIVE); KETONE NEGATIVE (NEGATIVE); NITRITE NEGATIVE (NEGATIVE); PROTEIN NEGATIVE (NEGATIVE)
[2019-04-09 02:06] LABS: BILIRUBIN NEGATIVE (NEGATIVE)
[2019-04-09 02:12] LABS: UDS - AMPHET POSITIVE QUAL (NEGATIVE); UDS - BARB NEGATIVE QUAL (NEGATIVE); UDS - BENZO NEGATIVE QUAL (NEGATIVE); UDS - COCAINE NEGATIVE QUAL (NEGATIVE); UDS - OPIATE NEGATIVE QUAL (NEGATIVE); UDS - PCP NEGATIVE QUAL (NEGATIVE); UDS - THC POSITIVE QUAL (NEGATIVE)
[2019-04-09 02:25] VITALS: BP 100/61
== END 2019-04-09 06:50 ==
LOC: D.ER 19:30
PROVIDERS: Family Medicine
DX: R45.851 Suicidal ideations (principal); F32.9 Major depressive disorder, single episode, unspecified; E11.9 Type 2 diabetes mellitus without complications; I50.9 Heart failure, unspecified; I11.0 Hypertensive heart disease with heart failure

== ENCOUNTER 2019-08-08 10:58 | Emergency (ER) | payer MEDICAID ==
[~2019-08-08] VITALS: Ht 162.6 cm; Wt 81.8 kg
[~2019-08-08 10:58] MED LIST changes: +EC-NAPROSYN500 MG PO; +OMNICEF300 MG PO; +PREDNISONE10 MG PO
[2019-08-08 11:02] VITALS: Ht 162.6 cm; Wt 81.8 kg
[2019-08-08 11:34] LABS: BASOPHILS 0.1 % (0-2); EOSINOPHILS 4.1 % (0-7); HEMATOCRIT 40.5 % (42.0-54.0); HEMOGLOBIN 13.8 g/dL (13.5-17.5); IMMATURE GRANULOCYTES 0.1 % (0-5); LYMPHOCYTES 25.3 % (15-50); MCH 31.7 pg (26.0-34.0); MCHC 34.1 g/dL (31.0-37.0); MCV 93.1 fL (80.0-100.0); MEAN PLATELET VOLUME 9.4 fL (7.4-10.4); MONOCYTES 12.2 % (2-11); NEUTROPHILS 58.2 % (40-80); PLATELET COUNT 242 10x3/uL (130-400); RBC 4.35 10x6/uL (4.20-6.10)
[2019-08-08 11:46] LABS: CALC OSMOLALITY 277 mosm/kg (275-300); CALCIUM 8.8 mg/dL (8.5-10.1); CARBON DIOXIDE 24.5 mmol/L (21.0-32.0); CHLORIDE - SERUM 106 mmol/L (98-107); GLUCOSE 102 mg/dL (74-106); INR 0.94 (0.85-1.17); POTASSIUM - SERUM 4.4 mmol/L (3.5-5.1); PROTIME 12.5 SECONDS (11.6-15.0); SODIUM 138 mmol/L (136-145); UREA NITROGEN 17 mg/dL (7-18); eGFR NON AFRICAN AMERICAN 85 mL/min (90-120)
[2019-08-08 12:02] LABS: ALBUMIN 3.3 g/dL (3.4-5.0); ALKALINE PHOSPHATASE 91 U/L (30-120); ALT (SGPT) 45 U/L (10-68); BILIRUBIN - TOTAL 0.33 mg/dL (0.2-1.3); CKMB 1.2 U/L (0.0-3.6); CREATINE KINASE 83 UL (21-232); LIPASE 89 U/L (73-393); MAGNESIUM - SERUM 2.3 mg/dL (1.8-2.4); PROTEIN - SERUM 6.9 g/dL (6.4-8.2); TROPONIN-I < 0.017 ng/mL (0.000-0.060)
[2019-08-08 13:43] LABS: BILIRUBIN NEGATIVE (NEGATIVE); GLUCOSE NEGATIVE (NEGATIVE); KETONE NEGATIVE (NEGATIVE); NITRITE NEGATIVE (NEGATIVE); SPECIFIC GRAVITY 1.015 (1.005-1.020); UROBILINOGEN NORMAL (NORMAL)
[2019-08-08 13:44] LABS: UDS - AMPHET POSITIVE QUAL (NEGATIVE); UDS - BARB NEGATIVE QUAL (NEGATIVE); UDS - BENZO NEGATIVE QUAL (NEGATIVE); UDS - COCAINE NEGATIVE QUAL (NEGATIVE); UDS - OPIATE NEGATIVE QUAL (NEGATIVE); UDS - PCP NEGATIVE QUAL (NEGATIVE); UDS - THC POSITIVE QUAL (NEGATIVE)
[2019-08-08] MEDS ORDERED: SMZ-TMP DS 800-1 TAB PO (14:46)
[2019-08-08 15:14] VITALS: BP 135/79
== END 2019-08-08 15:15 | disposition home or self-care (01) ==
LOC: D.ER 10:58
PROVIDERS: Family Medicine
DX: F19.10 Other psychoactive substance abuse, uncomplicated (principal); R41.0 Disorientation, unspecified; L01.00 Impetigo, unspecified; I10 Essential (primary) hypertension; E11.9 Type 2 diabetes mellitus without complications; K21.9 Gastro-esophageal reflux disease without esophagitis; J02.9 Acute pharyngitis, unspecified; R50.9 Fever, unspecified; R52 Pain, unspecified